=== PATIENT | male | born 1970 | race Caucasian/White ===

== ENCOUNTER 2018-08-20 23:50 | Inpatient (IN) ==
[2018-08-21] MEDS ORDERED: 0.9 % Sodium Chloride 1,000 ML IVC ONE (00:02)
--- NOTE | 2018-08-21 00:02 | Emergency Department Note ---
Disposition Clinical Impression: V-tach, Atrial fibrillation with RVR Disposition: Admitted As Inpatient Condition: Fair Referrals: NONE,PCP [Primary Care Provider] - Forms: ED Satisfaction Letter Time of Disposition: 01:45 General Adult HPI - General Chief complaint: ED Chest Pain Stated complaint: chest pain Time Seen by Provider: 08/21/18 00:00 Source: patient, EMS Limitations: no limitations Nursing Notes Reviewed: Yes Vital Signs Reviewed: Yes - History of Present Illness HPI Narrative: 48-year-old male presents emergency department with concern for palpitations starting a few hours prior to arrival. Patient reports that he has not had any chest pain. Patient reports that he has been dizzy, but has not passed out. Patient reports taking phentermine for weight loss over the last month. He also reports taking 3 rocket fuel drinks today. He states that he has been working a lot lately. Patient states that 8 years ago, he was diagnosed with some type of abnormal rhythm. He reports that he was taking several medications at that time. States that he was on a blood pressure medication for short stent, but quit taking it. Stated he had a cardiac evaluation at that time including ECG and stress testing and everything was normal. Patient denies any episodes of chest pain over the last few days. He denies any cough or upper respiratory infection symptoms. Patient does endorse diaphoresis. Pain Scale: 0 - Related Data Home Medications Medication Instructions Recorded Confirmed Celebrex 05/14/18 Percocet 7.5-325 mg Tablet 05/14/18 Previous Rx's Medication Instructions Recorded DiphenhydraMINE [Benadryl] 25 mg PO Q8HR PRN #30 capsule 05/14/18 Fluticasone Propionate Nasal 50 mcg NS BID #1 bottle 05/14/18 [Flonase] GuaiFENesin/Dextromethorphan 1 each PO BID #14 tab.er.[id number] 05/14/18 [Mucinex DM] Allergies Allergy/AdvReac Type Severity Reaction Status Date / Time No Known Allergies Allergy Verified 05/15/18 11:43 All systems ED: reviewed and negative except as stated. Review of Systems: As Per HPI Constitutional: Denies: fever Cardiovascular: Reports: palpitations, other (Dizziness). Denies: chest pain, syncope Respiratory: Denies: cough, dyspnea Gastrointestinal: Denies: abdominal pain, nausea Genitourinary: Denies: dysuria Past Medical History - Past Medical History Medical history: Reports: atrial fibrillation, hypertension Psychiatric history: Reports: no psych history - Social History Smoking Status: Former smoker Smokeless Tobacco Status: No Alcohol use: Reports: none Drug use: Reports: none Physical Exam - General Limitations: no limitations General appearance: alert, in no apparent distress - Head Head exam: normocephalic - Eye Eye exam: Present: EOMI - ENT ENT exam: mucous membranes moist - Neck Neck exam: Present: trachea midline - Chest Chest inspection: Present: symmetric chest wall rise - Respiratory Respiratory exam: Present: normal lung sounds bilaterally. Absent: respiratory distress, accessory muscle use - Cardiovascular Cardiovascular exam: Present: tachycardia, irregular rhythm, other (Telemetry: A. fib with RVR with a rate in the 130s, nonsustained runs of ventricular tachycardia with a rate as high as 220) - Abdominal Exam Abdominal exam: Present: soft, Non-Tender. Absent: distention, guarding, rebound, rigidity - Extremities Exam Extremities exam: Present: normal capillary refill - Back Exam Back exam: Present: full ROM - Neurological Exam Neurological exam: Present: alert, oriented X3 - Psychiatric Psychiatric exam: Present: normal affect, normal mood - Skin Skin exam: Present: warm, dry, intact, normal color. Absent: rash Course Vital Signs Temperature 98.3 F 08/20/18 23:53 Pulse Rate 149 08/20/18 23:53 Respiratory Rate 20 08/20/18 23:53 Blood Pressure 148/136 08/20/18 23:53 O2 Sat by Pulse Oximetry 100 08/20/18 23:53 Temperature 98.3 F 08/20/18 23:53 Pulse Rate 116 08/21/18 01:12 Respiratory Rate 14 08/21/18 01:12 Blood Pressure 131/93 08/21/18 01:12 O2 Sat by Pulse Oximetry 96 08/21/18 01:13 Oxygen Delivery Oxygen Delivery Room Air Medical Decision Making - [facility] Narrative Medical decision making narrative: 48-year-old male presents emergency department with concern for episodes of A. fib with RVR and paroxysmal nonsustained ventricular tachycardia. Patient only having symptoms of fluttering dizziness. He is not having any chest pain. Patient blood pressure stable tenderness. Patient was going into episodes of V. tach, the highest his heart rate went to was 220. We placed pads immediately. Patient was administered 1 L of fluids. Normal saline. We started amiodarone infusion by loading with 150 mg every 20 minutes. With this started IV drip afterwards. I spoke with the accounts receivable associate, Dr. Chowdary regarding the care of the patient. He agreed with the plan. Said to specifically keep patient's potassium will for a magnesium above 2. Also spoke with the design draftsman, Dr. Rolno who stated that without any chest pain or any concerning for ischemia and there would be no need for interventional cardiology involvement at this time. I agree with this. The basic metabolic panel was unremarkable and electrolytes were normal. Patient did have a mild leukocytosis which at this time, most consistent with stress demargination secondary to his rapid heart rate. Patient's troponin was negative. Chest x-ray did not reveal any evidence of cardiopulmonary abnormality. Patient did have 324 mg of aspirin prior to arrival. Dr. White agreed to accept the patient for admission. Patient was feeling much better. No more episodes of ventricular tachycardia after initial infusion of amiodarone. Patient currently in atrial fibrillation with RVR in the low 100s to 110s. Patient had aspirin prior to arrival. Have not started any blood thinning medication at this time. Chest X-Ray 08/21/18 00:01 IMPRESSION: No acute disease. D/ / Hayes Toussaint MD / Hayes Toussaint MD Interpreting Provider: Hayes Toussaint MD - Lab Data Result diagrams: 08/21/18 00:11 08/21/18 00:11 Lab Results 08/21/18 08/21/18 08/21/18 Range/Units 00:11 00:11 00:11 WBC 15.0 H (4.3-11.1) K/mcL RBC 5.39 (4.19-5.50) M/mcL Hgb 15.6 (12.9-16.9) g/dL Hct 46.8 (37.5-50.1) % MCV 86.8 (83.0-100.0) fL MCH 28.9 (28.0-33.3) pg MCHC 33.3 (31.6-35.5) g/dL RDW 13.2 (11.5-14.5) % Plt Count 269 (140-400) K/mcL MPV 9.9 (9.4-12.4) fL Immature Gran % 0.5 (0-4) % Seg Neutrophils % 62.2 % Lymphocytes % 26.5 % Monocytes % 9.5 % Eosinophils % 0.9 % Basophils % 0.4 % Neutrophils # 9.4 H (1.6-8.9) K/mcL Lymphocytes # 4.0 (0.6-4.6) K/mcL Monocytes # 1.4 H (0.0-1.3) K/mcL Eosinophils # 0.1 (0.0-0.6) K/mcL Basophils # 0.1 (0.0-0.2) K/mcL Sodium 138 (136-145) mEq/L Potassium 4.1 (3.5-5.1) mEq/L Chloride 104 (98-107) mEq/L Carbon Dioxide 26 (23-29) mEq/L BUN 14 (6-20) mg/dL Creatinine 1.05 (0.70-1.30) mg/dL Est GFR ( Amer) > 60 (> 60) Est GFR (Non-Af Amer) > 60 (> 60) BUN/Creatinine Ratio 13 (6-26) Glucose 112 H (70-105) mg/dL Calculated Osmolality 287 (280-300) Calcium 10.1 (8.6-10.3) mg/dL Magnesium 2.3 (1.6-2.6) mg/dL Troponin I 0.03 (< 0.04) ng/mL TSH 1.874 (0.340-5.600) mcIU/mL - EKG Data EKG #1 EKG attestation: Yes I reviewed and interpreted this EKG. EKG results narrative: EKG #1 23:55 Heart rate 187 bpm, no P waves, QRS duration 152 ms, QT normal. Atrial fibrillation with RVR and nonsustained runs of ventricular tachycardia ECG #2 23:57 V. tach with a heart rate of 210 bpm ECG #3 [id number] Atrial fibrillation with RVR with the heart rate as high as 136. and occasional PVC. No ischemic ST changes noted.
[2018-08-21] MEDS ORDERED: 0.9 % Sodium Chloride 1,000 ML ONE (00:04)
[2018-08-21] MEDS ORDERED: Amiodarone Premix 150 MG/100 ML BAG IVPB ONE (00:17)
[2018-08-21] MEDS ORDERED: Amiodarone Premix 360 MG/200 ML BAG IVC ONE (00:19)
[2018-08-21 00:24] LABS: Basophils # 0.1 K/mcL (0.0-0.2); Basophils % 0.4 %; Eosinophils # 0.1 K/mcL (0.0-0.6); Eosinophils % 0.9 %; Hematocrit 46.8 % (37.5-50.1); Hemoglobin 15.6 g/dL (12.9-16.9); Immature Granulocytes % 0.5 % (0-4); Lymphocytes % 26.5 %; Mean Corpuscular HGB Conc 33.3 g/dL (31.6-35.5); Mean Corpuscular Hemoglobin 28.9 pg (28.0-33.3); Mean Corpuscular Volume 86.8 fL (83.0-100.0); Mean Platelet Volume 9.9 fL (9.4-12.4); Monocytes # 1.4 K/mcL (0.0-1.3); Monocytes % 9.5 %; Neutrophils # 9.4 K/mcL (1.6-8.9); Platelet Count 269 K/mcL (140-400); Red Blood Count 5.39 M/mcL (4.19-5.50); Red Cell Distribution Width 13.2 % (11.5-14.5); Segmented Neutrophils % 62.2 %
--- NOTE | 2018-08-21 00:30 | Emergency Department Note ---
Disposition Clinical Impression: V-tach, Atrial fibrillation with RVR Disposition: Admitted As Inpatient Condition: Fair Time of Disposition: 01:45 General Adult HPI - General Chief complaint: ED Chest Pain Stated complaint: chest pain Time Seen by Provider: 08/21/18 00:00 Source: patient, EMS Limitations: no limitations Nursing Notes Reviewed: Yes Vital Signs Reviewed: Yes - History of Present Illness Pain Scale: 0 - Related Data Home Medications Medication Instructions Recorded Confirmed DiphenhydraMINE [Benadryl] 25 mg PO HS PRN 08/21/18 08/21/18 Oxycodone HCl/Acetaminophen 1 each PO BID PRN 08/21/18 08/21/18 [Percocet 5-325 mg Tablet] Phentermine HCl [Adipex-P] 37.5 mg PO DAILY 08/21/18 08/21/18 Allergies Allergy/AdvReac Type Severity Reaction Status Date / Time No Known Allergies Allergy Verified 05/15/18 11:43 Past Medical History - Past Medical History Medical history: Reports: atrial fibrillation, hypertension Psychiatric history: Reports: no psych history - Social History Smoking Status: Former smoker Smokeless Tobacco Status: No Alcohol use: Reports: none Drug use: Reports: none Physical Exam - General Limitations: no limitations General appearance: alert, in no apparent distress Course Vital Signs Temperature 98.3 F 08/20/18 23:53 Pulse Rate 149 08/20/18 23:53 Respiratory Rate 20 08/20/18 23:53 Blood Pressure 148/136 08/20/18 23:53 O2 Sat by Pulse Oximetry 100 08/20/18 23:53 Temperature 98.3 F 08/20/18 23:53 Pulse Rate 116 08/21/18 01:12 Respiratory Rate 18 08/21/18 02:53 Blood Pressure 116/96 08/21/18 02:53 O2 Sat by Pulse Oximetry 96 08/21/18 01:13 Oxygen Delivery Oxygen Delivery Room Air Medical Decision Making - Lab Data Lab results reviewed: Yes I reviewed the patient's lab results. Result diagrams: 08/21/18 00:11 08/21/18 00:11 Lab Results 08/21/18 08/21/18 08/21/18 Range/Units 00:11 00:11 00:11 WBC 15.0 H (4.3-11.1) K/mcL RBC 5.39 (4.19-5.50) M/mcL Hgb 15.6 (12.9-16.9) g/dL Hct 46.8 (37.5-50.1) % MCV 86.8 (83.0-100.0) fL MCH 28.9 (28.0-33.3) pg MCHC 33.3 (31.6-35.5) g/dL RDW 13.2 (11.5-14.5) % Plt Count 269 (140-400) K/mcL MPV 9.9 (9.4-12.4) fL Immature Gran % 0.5 (0-4) % Seg Neutrophils % 62.2 % Lymphocytes % 26.5 % Monocytes % 9.5 % Eosinophils % 0.9 % Basophils % 0.4 % Neutrophils # 9.4 H (1.6-8.9) K/mcL Lymphocytes # 4.0 (0.6-4.6) K/mcL Monocytes # 1.4 H (0.0-1.3) K/mcL Eosinophils # 0.1 (0.0-0.6) K/mcL Basophils # 0.1 (0.0-0.2) K/mcL Sodium 138 (136-145) mEq/L Potassium 4.1 (3.5-5.1) mEq/L Chloride 104 (98-107) mEq/L Carbon Dioxide 26 (23-29) mEq/L BUN 14 (6-20) mg/dL Creatinine 1.05 (0.70-1.30) mg/dL Est GFR ( Amer) > 60 (> 60) Est GFR (Non-Af Amer) > 60 (> 60) BUN/Creatinine Ratio 13 (6-26) Glucose 112 H (70-105) mg/dL Calculated Osmolality 287 (280-300) Calcium 10.1 (8.6-10.3) mg/dL Magnesium 2.3 (1.6-2.6) mg/dL Troponin I 0.03 (< 0.04) ng/mL TSH 1.874 (0.340-5.600) mcIU/mL - Radiology Data Radiology results reviewed: Yes I reviewed the patient's radiology results. Chest X-Ray 08/21/18 00:01 IMPRESSION: No acute disease. D/ / Hayes Toussaint MD / Hayes Toussaint MD Interpreting Provider: Hayes Toussaint MD - EKG Data EKG #1 EKG attestation: Yes I reviewed and interpreted this EKG. EKG results narrative: Atrial fibrillation with RVR with ventricular rate of 136. PVC. Right ventricular conduction delay. EKG #2 EKG attestation: Yes I reviewed and interpreted this EKG. EKG results narrative: Atrial fibrillation with RVR with ventricular rate of 136. PVC. Right ventricular conduction delay. EKG #3 EKG attestation: Yes I reviewed and interpreted this EKG. EKG results narrative: Atrial fibrillation with RVR with ventricular rate of 136. PVC. Right ventricular conduction delay. Critical Care Time Critical Care Time: Yes Total Critical Care Time: 45 Attestation: Critical care performed: Time is exclusive of separately billable procedures. Time includes: direct patient care, patient reassessment, coordination of patient care, interpretation of data (laboratory data, radiology data, and respiratory data), review of patient's medical records, medical consultation and documentation of patient care. Procedures included in critical care time: Procedures excluded from critical care time: Attestation Statement - Attestation Attestation: I, Abdoulaye Mayers MD, personally evaluated this patient and discussed their management with the resident physician. I reviewed the resident's note and agree with the documented findings, medical decision making, and plan of care. I reviewed the residents documentation and agree with the residents assessment and plan of care. I have personally had face to face time with the patient. I personally supervised and was present for the lee/critical portions of the following procedures completed by the resident: EKG interpretation. 48-year-old male presents to the emergency department by EMS with a complaint of palpitations which started about 8:30 this evening. He states he feels like his heart is racing and is irregular. It comes and goes. He complains of feeling weak and dizzy with the episodes. He also has had some diaphoresis. It also makes him short of breath whenever the heart start racing really fast. He denies any chest pain. He does have a history of some type of irregular heartbeat in the past but states he had a complete workup and they never found anything wrong with his heart. On examination patient is a well-developed obese male in no acute distress. He is alert and oriented 3. There is no cyanosis or diaphoresis. Breath sounds are clear and equal bilaterally. Heart is tachycardic and irregularly irregular. Abdomen is soft and nontender with normal bowel sounds. On arrival here in the emergency department the EKG shows atrial fibrillation with RVR which intermittently converts to ventricular tachycardia and then spontaneously converts back to atrial fibrillation with RVR. Heart rate in the 130s to 150s with the A. fib and up to 210 with the V. tach. Patient is alert throughout the episodes. He states he can feel it whenever he goes in to the V. tach and states it makes him feel a little short of breath but no chest pain. Chest x-ray negative. Labs reviewed and unremarkable. Troponin negative. TSH normal. Dr. Contreras discussed the case with the diesel roller operator honing machine operator, Dr. Chowdary. He was in agreement with treating the patient with amiodarone and did recommend contacting the interventional is. The interventional list, Dr. Rolon, was consulted and had no further recommendations at this time. The hospitalist, Dr. White, was consulted and accepted admission of the patient.
[2018-08-21 00:44] LABS: BUN/Creatinine Ratio 13 (6-26); Blood Urea Nitrogen 14 mg/dL (6-20); Calcium 10.1 mg/dL (8.6-10.3); Carbon Dioxide 26 mEq/L (23-29); Chloride 104 mEq/L (98-107); Glucose 112 mg/dL (70-105); Osmolality,Calculated 287 (280-300); Potassium 4.1 mEq/L (3.5-5.1); Sodium 138 mEq/L (136-145); eGFR For African Americans > 60 (> 60); eGFR For Non-African Americans > 60 (> 60)
[2018-08-21 00:46] LABS: Troponin I 0.03 ng/mL (< 0.04)
[2018-08-21 00:59] LABS: Thyroid Stimulating Hormone 1.874 mcIU/mL (0.340-5.600)
[2018-08-21] MEDS ORDERED: Naloxone 0.4 MG/ML INJ IVP PRN (02:39)
[2018-08-21] MEDS ORDERED: *HR* OxyCODONE/APAP 5/325 TABLET PO PRN (02:42)
--- NOTE | 2018-08-21 02:46 | Internal Med History&Physical ---
<IkeOlivaBryan C - Last Filed: 08/21/18 03:33> Date of Encounter: 08/21/18 Time of Encounter: 02:43 Internal Medicine - H&P: HPI Chief complaint: Weakness Admitted From: Emergency Dept Plans for Post Hospital Care: Home History of present illness: Mr. Abel is a 48 year old male with past medical history of obesity and bilateral total knee arthroplasties who presented to the emergency department via EMS after he complained of lightheadedness, weakness, palpitations. Patient states he has been working a lot recently, taking phentermine for weight loss, drinking energy drinks, not been sleeping, and was working heavily in the yard prior to the onset of symptoms. He states he began feeling lightheaded, weak, sweaty, and was having palpitations. He went inside to the shower, sat on the couch, and continued to feel weak and diaphoretic, and so called EMS. He denies any chest pain. He states he has had these symptoms once before when taking phentermine approximately 10 years ago. According to EMS the patient was going back and forth between ventricular tachycardia and atrial fibrillation en route to the emergency department. EKGs from the emergency department demonstrate this as well. In the emergency department amiodarone bolus and drip were administered. On my evaluation the patient was in atrial fibrillation with rate controlled. He denied any current complaints including chest pain, shortness of breath, fever, chills, abdominal pain, nausea, vomiting, lightheadedness or weakness. He reports quitting smoking over 10 years ago, denies significant alcohol use or any drug use. He denies any previous cardiac history. Past Med Surg Social Fam HX - Past Medical History Medical history: atrial fibrillation, hypertension, other Additional medical history: sleep apnea Psychiatric history: no psych history - Past Surgical History Additional surgical history: bilateral knee replacement - Social History Smoking Status: Former smoker Smokeless Tobacco Status: No Alcohol use: none Drug use: none Internal Medicine - H&P: Meds DiphenhydraMINE [Benadryl] 25 mg PO HS PRN 08/21/18 [History] Oxycodone HCl/Acetaminophen [Percocet 5-325 mg Tablet] 1 each PO BID PRN 08/21/18 [History] Phentermine HCl [Adipex-P] 37.5 mg PO DAILY 08/21/18 [History] Allergy/AdvReac Type Severity Reaction Status Date / Time No Known Allergies Allergy Verified 05/15/18 11:43 All Systems PM: A 10-system review of systems was performed and is negative for pertinent findings except as documented above in the HPI. - Constitutional Vitals: Temp Pulse Resp BP Pulse Ox 98.3 F 116 14 131/93 96 08/20/18 23:53 08/21/18 01:12 08/21/18 01:12 08/21/18 01:12 08/21/18 01:13 General appearance: Present: A&O X 3, no acute distress Exam: Alert and oriented, normal affect Cranial nerves II through XII intact, no focal deficits Pupils equal and reactive to light, extraocular movements intact Heart is tachycardic and in irregularly irregular rhythm without murmur or gallop auscultated Lungs clear to auscultation bilaterally without adventitia noted Abdomen soft and nontender with normal bowel sounds noted Motor 5/5 in all 4 extremities, sensation intact Skin warm and dry without rash, bruising, bleeding noted Internal Med - H&P Results - Labs CBC & Chem 7: 08/21/18 00:11 08/21/18 00:11 Labs: Short CBC 08/21/18 Range/Units 00:11 WBC 15.0 H (4.3-11.1) K/mcL Hgb 15.6 (12.9-16.9) g/dL Hct 46.8 (37.5-50.1) % Plt Count 269 (140-400) K/mcL Neutrophils # 9.4 H (1.6-8.9) K/mcL BMP 08/21/18 00:11 Sodium 138 Potassium 4.1 Chloride 104 Carbon Dioxide 26 BUN 14 Creatinine 1.05 Glucose 112 H Calcium 10.1 Cardiac Enzymes 08/21/18 Range/Units 00:11 Troponin I 0.03 (< 0.04) ng/mL - Impressions ITS Impressions Chest X-Ray 08/21/18 00:01 IMPRESSION: No acute disease. D/ / Hayes Toussaint MD / Hayes Toussaint MD Interpreting Provider: Hayes Toussaint MD - Assessment and Plan (1) V-tach Current Visit: Yes Status: Acute Assessment and plan: Patient was found to be in ventricular tachycardia by EMS and in emergency department With administration of amiodarone he converted to atrial fibrillation and has maintained Troponin negative, patient denies chest pain or shortness of breath Cardiology consultation recommended continuing amiodarone and will evaluate in the morning Patient is currently hemodynamically stable and without acute complaints We will continue amiodarone drip and monitor (2) Atrial fibrillation with RVR Current Visit: Yes Status: Acute Assessment and plan: Patient currently in atrial fibrillation with rate controlled ChadsVasc score is 0, we will not initiate heparin at this time Cardiology will evaluate in the morning (3) Obesity Current Visit: Yes Status: Chronic Assessment and plan: Patient was taking phentermine for weight loss and states he has had 1 previous episode of unknown cardiac complication from this drug over 10 years ago He was counseled on no longer taking this medication due to his previous physician for side effects Qualifiers: Obesity type: due to excess calories Obesity classification: adult class 3 (BMI >= 40) Serious obesity comorbidity presence: without serious comorbidity Body mass index: BMI 45.0-49.9 Qualified Code(s): E66.01 - Morbid (severe) obesity due to excess calories; Z68.42 - Body mass index (BMI) 45.0-49.9, adult (4) DVT prophylaxis Current Visit: Yes Status: Acute Assessment and plan: Subcutaneous heparin - Time Spent With Patient Total time spent is greater than 50% in coordination of care (as documented) at patient's floor/unit and/or counseling patient: <Juan F White - Last Filed: 08/21/18 07:55> Date of Encounter: 08/21/18 Internal Medicine - H&P: HPI History of present illness: Mr. Abel is a 48 year old male Past Med Surg Social Fam HX - Family History Father Living Status: Still Living Hx Family Cardiac Disorders: Yes (HTN) Mother Living Status: Still Living Hx Family Cardiac Disorders: Yes (HTN) All Systems PM: A 10-system review of systems was performed and is negative for pertinent findings except as documented above in the HPI. - Constitutional Vitals: Temp Pulse Resp BP Pulse Ox 98.3 F 96 18 139/87 95 08/21/18 06:39 08/21/18 06:39 08/21/18 06:39 08/21/18 06:39 08/21/18 06:39 Internal Med - H&P Results - Labs CBC & Chem 7: 08/21/18 00:11 08/21/18 00:11 Labs: Short CBC 08/21/18 Range/Units 00:11 WBC 15.0 H (4.3-11.1) K/mcL Hgb 15.6 (12.9-16.9) g/dL Hct 46.8 (37.5-50.1) % Plt Count 269 (140-400) K/mcL Neutrophils # 9.4 H (1.6-8.9) K/mcL BMP 08/21/18 00:11 Sodium 138 Potassium 4.1 Chloride 104 Carbon Dioxide 26 BUN 14 Creatinine 1.05 Glucose 112 H Calcium 10.1 Cardiac Enzymes 08/21/18 Range/Units 00:11 Troponin I 0.03 (< 0.04) ng/mL - Impressions ITS Impressions Chest X-Ray 08/21/18 00:01 IMPRESSION: No acute disease. D/ / Hayes Toussaint MD / Hayes Toussaint MD Interpreting Provider: Hayes Toussaint MD - Time Spent With Patient Total time spent is greater than 50% in coordination of care (as documented) at patient's floor/unit and/or counseling patient: - Attending Attestation I performed a history and physical examination of the patient and discussed his management with the resident. I reviewed the resident's note and agree with the documented plan of care. We will continue with amiodarone drip. Hold anticoagulation given patient's chads vascular score 0. Cardiology consult.
[2018-08-21] MEDS ORDERED: Amiodarone Premix 360 MG/200 ML BAG IVC SCH (04:15)
[2018-08-21] MEDS ORDERED: *HR* Heparin 5,000 UNIT/ML VIAL SQ SCH (06:00)
[2018-08-21 06:01] LABS: INR 1.1; Prothrombin Time 12.1 Seconds (9.4-12.1)
[2018-08-21 06:03] LABS: Activated Partial Thrombo Time 33.4 Seconds (26.0-36.0)
--- NOTE | 2018-08-21 08:21 | Internal Med Progress Note ---
<Juan Abbasi - Last Filed: 08/21/18 16:38> Hospitalist Progress Note - Encounter Date of Encounter: 08/21/18 - Exam Vitals: Temp Pulse Resp BP Pulse Ox 98.3 F 72 18 123/80 94 08/21/18 12:02 08/21/18 15:00 08/21/18 15:00 08/21/18 15:00 08/21/18 15:00 - Time Spent with Patient Total time spent is greater than 50% in coordination of care (as documented) at patient's floor/unit and/or counseling patient: Internal Medicine: Result - Labs CBC & Chem 7: 08/21/18 10:14 08/21/18 00:11 Labs: Short CBC 08/21/18 08/21/18 Range/Units 00:11 10:14 WBC 15.0 H 12.6 H (4.3-11.1) K/mcL Hgb 15.6 14.9 (12.9-16.9) g/dL Hct 46.8 44.7 (37.5-50.1) % Plt Count 269 262 (140-400) K/mcL Neutrophils # 9.4 H (1.6-8.9) K/mcL BMP 08/21/18 00:11 Sodium 138 Potassium 4.1 Chloride 104 Carbon Dioxide 26 BUN 14 Creatinine 1.05 Glucose 112 H Calcium 10.1 Cardiac Enzymes 08/21/18 08/21/18 Range/Units 00:11 09:17 Troponin I 0.03 < 0.03 (< 0.04) ng/mL - ABG Interpretation ABG results: PT/INR, D-dimer PT 12.1 Seconds (9.4-12.1) 08/21/18 10:14 - Impressions Impressions Chest X-Ray 08/21/18 00:01 IMPRESSION: No acute disease. D/ / Hayes Toussaint MD / Hayes Toussaint MD Interpreting Provider: Hayes Toussaint MD Echocardiogram 08/21/18 08:53 Impressions: LVEF 60-65%. Normal LV chamber size and function. Mild concentric left ventricular hypertrophy. Indeterminate diastolic function. Normal right ventricular structure and function. No evidence of pulmonary hypertension. No significant valvular dysfunction. Left Ventricular Wall Motion: Rest Echo Findings All wall segments showed normal motion. Findings: Study Quality * Technically adequate exam. ECG Findings * Atrial fibrillation. Left Ventricle * LVEF 60-65%. * Normal LV chamber size and function. * Mild concentric left ventricular hypertrophy. * Indeterminate diastolic function. Right Ventricle * Normal right ventricular structure and function. Left Atrium * Mildly dilated left atrium. Right Atrium * Normal right atrial size. Interatrial Septum * Interatrial septum not well evaluated. Aortic Valve * Trileaflet aortic valve with normal function. * No aortic regurgitation. * No aortic stenosis. Mitral Valve * Normal mitral valve structure and function. * No mitral regurgitation. * No mitral stenosis. Tricuspid Valve * Normal tricuspid valve structure and function. * Trace tricuspid regurgitation. * No evidence of pulmonary hypertension. Pulmonic Valve * Normal pulmonic valve structure and function. * No pulmonic regurgitation. Aorta * Normally sized aortic root. Pericardium * The pericardium appears normal. IVC * Normal IVC dimensions and inspiratory collapse. Pulmonary Artery * Normal visualized portions of the main pulmonary artery. Consult Discharge Plan - Plan Referrals: NONE,PCP [Primary Care Provider] - - Attending Attestation I examined this patient and my medical decision-making was reviewed with the Resident Physician on 08/21/18. I agree with the documented findings, disposition and treatment plan as described except to the extent set forth below. Mr Abel was admitted earlier this AM with atrial fibrillation versus V tach. He remains in a fib at this time. Exam alert comfortable Mucus membranes moist Heart irreg and not tachy Appreciate cardiology input Agree with assessment and plan as above and in H&P <Maggie Sawant - Last Filed: 08/21/18 19:55> Hospitalist Progress Note - Encounter Date of Encounter: 08/21/18 Time of Encounter: 08:18 - Subjective Interval History: Seen and examined this morning. Pt's is present in the room. Pt states he i s feeling much better than when he was admitted. Denies chest pain, difficulty breathing, abdominal pain, nausea, headache. He has no complaints at this time. - Exam Vitals: Temp Pulse Resp BP Pulse Ox 98.3 F 96 18 139/87 95 08/21/18 06:39 08/21/18 06:39 08/21/18 06:39 08/21/18 06:39 08/21/18 06:39 Exam: General: No acute distress, vitals noted HEENT: head normocephalic/atraumatic, EOMI, PERRL, sclera anicteric, moist mucus membranes Neck: Supple Cardio: Irregular rhythm, tachycardic, no murmurs, +S1/S2, no carotid bruits Pulm: CTAB, no wheezing/rhonchi/rales. Normal respiratory effort. Abdomen: soft, nontender, active bowel sounds Extremities: No LE edema, no cyanosis, no clubbing, pedal pulses present and equal bilaterally Back: normal appearance on inspection Neuro: AAOx3, no focal deficits, no speech deficit, mentating well, normal gait, CN II-XII grossly intact, moves all extremities spontaneously MSK: no visible deformities, no joint swelling Skin: clean, dry, intact, no visible rashes Psych: Appropriate mood and affect. Answers questions appropriately. Cooperative with exam - Assessment and Plan (1) Atrial fibrillation with RVR Current Visit: Yes Status: Acute Assessment and Plan: Rate controlled. HR 149 on presentation to ED, pt states his HR was in 220's-250 during EMS transport. New onset, most likely d/t use of phentermine and excessive caffeine intake with 2-3 energy drinks per day. Pt states he had same symptoms of lightheadedness, diaphoresis, palpitations, and weakness when he took phentermine 10 years ago for weight loss. CHADS-VASc 1 (HTN). Sustained periods of VTach on monitor while in ED. EKG showed HR 134, Afib, and PVC's--per cardiology, morphology suggests outflow tract. Echo shows LVEF 60-65%, normal LV size and function, mild LVH, no significant valvular dysfunction. Received amiodarone bolus and gtt in emergency department, discontinued by cardiology who started pt on BB. Continue metoprolol 25mg PO BID. Continue telemetry monitoring and heparin gtt. Long-term ASA recommended by cardiology. Cardiology considering SHASHI guided cardioversion prior to discharge, possibly ischemic evaluation too. (2) V-tach Current Visit: Yes Status: Acute Assessment and Plan: As above. Arrhythmia most likely d/t phentermine and energy drinks. Possible ischemic evaluation prior to d/c. (3) Hypertension Current Visit: Yes Status: Chronic Assessment and Plan: Controlled. Hx of HTN not on BP meds. On presentation SBP 140's and DBP 100's. (4) Leukocytosis Current Visit: Yes Status: Acute Assessment and Plan: On admission WBC 15, most likely a reaction to bodily stress d/t stimulant use. No symptoms suggestive of infection. Will continue to monitor for downward trend. (5) Exposure to phentermine Current Visit: Yes Status: Acute Assessment and Plan: As above. Taking phentermine for weight loss x 1 month. Avoidance of phentermine in the future was discussed, pt agreeable. (6) Obesity Current Visit: Yes Status: Chronic Assessment and Plan: BMI 41.7 Recommend lifestyle changes including diet and exercise. Strongly recommend against using phentermine for weight loss. (7) Caffeine adverse reaction Current Visit: Yes Status: Acute Assessment and Plan: As above. DVT Prophylaxis: heparin gtt - Time Spent with Patient Total time spent is greater than 50% in coordination of care (as documented) at patient's floor/unit and/or counseling patient: less than 15 minutes Plan of Care Discussed with: patient Internal Medicine: Result - Labs CBC & Chem 7: 08/21/18 10:14 08/21/18 00:11 Labs: Short CBC 08/21/18 Range/Units 00:11 WBC 15.0 H (4.3-11.1) K/mcL Hgb 15.6 (12.9-16.9) g/dL Hct 46.8 (37.5-50.1) % Plt Count 269 (140-400) K/mcL Neutrophils # 9.4 H (1.6-8.9) K/mcL BMP 08/21/18 00:11 Sodium 138 Potassium 4.1 Chloride 104 Carbon Dioxide 26 BUN 14 Creatinine 1.05 Glucose 112 H Calcium 10.1 Cardiac Enzymes 08/21/18 Range/Units 00:11 Troponin I 0.03 (< 0.04) ng/mL - ABG Interpretation ABG results: PT/INR, D-dimer PT 12.1 Seconds (9.4-12.1) 08/21/18 05:25 - Impressions Impressions Chest X-Ray 08/21/18 00:01 IMPRESSION: No acute disease. D/ / Hayes Toussaint MD / Hayes Toussaint MD Interpreting Provider: Hayes Toussaint MD <Maggie Sawant - Last Filed: 08/21/18 19:55> (3) Hypertension Qualifiers: Hypertension type: unspecified Qualified Code(s): I10 - Essential (primary) hypertension (5) Exposure to phentermine Qualifiers: Encounter type: sequela Qualified Code(s): T50.5X5S - Adverse effect of appetite depressants, sequela (6) Obesity Qualifiers: Obesity type: due to excess calories Obesity classification: adult class 3 (BMI >= 40) Serious obesity comorbidity presence: without serious comorbidity Body mass index: BMI 45.0-49.9 Qualified Code(s): E66.01 - Morbid (severe) obesity due to excess calories; Z68.42 - Body mass index (BMI) 45.0-49.9, adult (7) Caffeine adverse reaction Qualifiers: Encounter type: sequela Qualified Code(s): T43.615S - Adverse effect of caffeine, sequela
--- NOTE | 2018-08-21 08:46 | Cardiology Consult Note ---
Date of Encounter: 08/21/18 Time of Encounter: 08:42 Assessment and Plan (1) V-tach Current Visit: Yes Status: Acute VT and A-Fib RVR on presentation. VT appears to be outflow tract. Suspect secondary to taking phentermine for weight loss, drinking 2-3 energy drinks/day. Symptoms of dizziness, lightheadedness, palpitations and chest discomfort. On amio gtt. No ventricular arrhythmias overnight. He remains in A-Fib and reports palpitations and mild chest discomfort currently. Stop Amio. Will start PO BB. K, Mag, TSH WNL. Initial troponin negative. Trend for total of 3. TTE to evaluate structure and function. Will determine if ischemic evaluation is warranted. EP consult Thursday for VT. (2) Atrial fibrillation with RVR Current Visit: Yes Status: Acute As above, new diagnosis of A-Fib RVR and VT while taking phentermine, drinking 2-3 energy drinks/day. He states he has had these symptoms once before when taking phentermine approximately 10 years ago and had a stress test and was started on a beta chelsie at that time, since discontinued. Currently rate controlled A-Fib, on amio gtt. Stop Amio. Will start PO BB. [id number] 1 (HTN). Low CVA risk. Will start heparin gtt and if remains in A-Fib over the weekend, consider SHASHI/DCCV prior to d/c given he is symptomatic and his age. Discussion w patient/family: The assessment and plan as outlined above was discussed with the patient and/or family members who expressed understanding and agreement. All questions were answered. Thank you for involving us in the care of your patient. Please call with any questions. I will discuss all the above with Dr. Chowdary and make changes as necessary. History of Present Illness Consult date: 08/21/18 Consult reason: A-Fib RVR, VT History of present illness: Mr. Abel is a 48 year old male with PMH of obesity, prior tobacco abuse who presented to ED via EMS for sudden onset of lightheadedness, weakness, palpitations, chest discomfort that started at 8:30PM yesterday after chopping wood. He is taking phentermine for weight loss, drinking 2-3 energy drinks/day. He states he has had these symptoms once before when taking phentermine approximately 10 years ago and had a stress test and was started on a beta chelsie at that time, since discontinued. According to EMS the patient noted to have A-Fib and VT en route to the emergency department. EKGs from the emergency department demonstrate this as well. In the ED amiodarone bolus and drip were started. No ventricular arrhythmias overnight. He remains in A-Fib and still reports palpitations and chest discomfort. Initial troponin negative. Cardiology consulted for further recs. Past Med Surg Social Fam HX - Past Medical History Medical history: atrial fibrillation, hypertension, other Additional medical history: sleep apnea Psychiatric history: no psych history - Past Surgical History Additional surgical history: bilateral knee replacement, left bicap - Social History Smoking Status: Former smoker Smokeless Tobacco Status: No Alcohol use: none Drug use: none - Family History Father Living Status: Still Living Hx Family Cardiac Disorders: Yes (HTN) Mother Living Status: Still Living Hx Family Cardiac Disorders: Yes (HTN) Medications and Allergies DiphenhydraMINE [Benadryl] 25 mg PO HS PRN 08/21/18 [History] Oxycodone HCl/Acetaminophen [Percocet 5-325 mg Tablet] 1 each PO BID PRN 08/21/18 [History] Phentermine HCl [Adipex-P] 37.5 mg PO DAILY 08/21/18 [History] Allergy/AdvReac Type Severity Reaction Status Date / Time No Known Allergies Allergy Verified 05/15/18 11:43 All Systems Review: The remainder of the systems were reviewed and are negative - Cardiovascular Cardiovascular: as per HPI, chest pain at rest, lightheadedness, palpitations, rapid heart rate Physical Examination Vital Signs, Last 4 Hours Temp Pulse Resp BP Pulse Ox 08/21/18 06:39 98.3 F 96 18 139/87 95 08/21/18 06:38 84 139/103 08/21/18 06:30 83 139/87 08/21/18 06:00 109 143/91 08/21/18 05:30 88 139/96 08/21/18 05:00 90 136/96 Vital Signs Temp Pulse Resp BP Pulse Ox 08/21/18 06:39 98.3 F 96 18 139/87 95 08/21/18 06:38 84 139/103 08/21/18 06:30 83 139/87 08/21/18 06:00 109 143/91 08/21/18 05:30 88 139/96 08/21/18 05:00 90 136/96 08/21/18 04:30 84 139/103 08/21/18 03:23 98.1 F 86 18 148/93 96 08/21/18 02:53 18 116/96 08/21/18 01:13 96 08/21/18 01:12 116 14 131/93 95 08/21/18 00:45 114 15 142/100 96 08/21/18 00:33 123 14 133/83 97 08/21/18 00:06 134 16 127/101 98 08/20/18 23:53 98.3 F 149 20 148/136 100 Intake and Output 08/20/18 08/21/18 08/21/18 23:59 07:59 15:59 Intake Total 1300 / 1300 Output Total 225 / 225 Balance 1075 / 1075 Intake: IV Fluids 1300 / 1300 0.9 % Sodium Chloride 1,000 ML 1000 / 1000 @ Wide Open IVC .Q0M ONE Rx#: [id number] Amiodarone Drip Premix 360mg/ 200 / 200 200mL 360 mg In 200 ml @ 1 MG/ MIN 33.333 mls/hr IVC ONCE ONE Rx#:[id number] Amiodarone Premix 150mg/100mL 100 / 100 150 mg In 100 ml @ 300 mls/hr IVPB ONCE ONE Rx#:[id number] Output: Urine 225 / 225 Other: Weight 153.677 kg 139.5 kg Patient Weight 08/21/18 23:59 Weight 139.5 kg General: Conversant, No Apparent Distress HEENT: Atraumatic, Normocephaly, Mucus Membranes Moist Neck: No JVD, Normal carotid pulses Cardiac: Other (irregularly irregular rhythm) Lungs: Normal Breath Sounds, No Wheeze, Rales, Rhonchi Neuro: Alert and responsive, No focal deficits noted Abdomen: Soft, Non-Tender Skin: No rashes noted on visualized skin Musculoskeletal: No Chest Wall Tenderness Extremities: No Clubbing, No Cyanosis, No Edema, Normal Pulses Results 08/21/18 00:11 08/21/18 00:11 Lab Results 08/21/18 08/21/18 08/21/18 00:11 00:11 00:11 WBC 15.0 H Hgb 15.6 Hct 46.8 Plt Count 269 INR APTT Sodium 138 Potassium 4.1 Chloride 104 Carbon Dioxide 26 BUN 14 Creatinine 1.05 Glucose 112 H Calcium 10.1 Magnesium 2.3 Troponin I 0.03 TSH 1.874 08/21/18 05:25 WBC Hgb Hct Plt Count INR 1.1 APTT 33.4 Sodium Potassium Chloride Carbon Dioxide BUN Creatinine Glucose Calcium Magnesium Troponin I TSH Short CBC 08/21/18 Range/Units 00:11 WBC 15.0 H (4.3-11.1) K/mcL Hgb 15.6 (12.9-16.9) g/dL Hct 46.8 (37.5-50.1) % Plt Count 269 (140-400) K/mcL Neutrophils # 9.4 H (1.6-8.9) K/mcL BMP 08/21/18 Range/Units 00:11 Sodium 138 (136-145) mEq/L Potassium 4.1 (3.5-5.1) mEq/L Chloride 104 (98-107) mEq/L Carbon Dioxide 26 (23-29) mEq/L BUN 14 (6-20) mg/dL Creatinine 1.05 (0.70-1.30) mg/dL Glucose 112 H (70-105) mg/dL Calcium 10.1 (8.6-10.3) mg/dL Cardiac Enzymes 08/21/18 Range/Units 00:11 Troponin I 0.03 (< 0.04) ng/mL Impressions Chest X-Ray 08/21/18 00:01 IMPRESSION: No acute disease. D/ / Hayes Toussaint MD / Hayes Toussaint MD Interpreting Provider: Hayes Toussaint MD Active Medications Heparin Sodium (Porcine) (Heparin) 5,000 unit SQ Q12HCO ASHLEY Stop: 02/20/19 06:01 Last Admin: 08/21/18 06:14 Dose: 5,000 unit Documented by: Amiodarone HCl/Dextrose (Amiodarone Drip Premix 360mg/200ml) 360 mg in 200 mls @ 16.667 mls/hr IVC CONT ASHLEY Stop: 02/20/19 04:16 Last Admin: 08/21/18 06:12 Dose: 0.5 mg/min, 16.7 mls/hr Documented by: Naloxone HCl (Narcan) 0.4 mg IVP Q2MPRN PRN PRN Reason: SEE COMMENTS Stop: 02/20/19 02:40 Oxycodone/Acetaminophen (Percocet 5/325) 1 each PO BID PRN PRN Reason: Pain Stop: 02/20/19 02:43 - EKG Interpretation EKG results cardiology: personally reviewed (A-Fib RVR, VT), other (12 hr tele AVG HR 92, A-Fib, no ventricular arrhythmias) Consult Discharge Plan - Plan Referrals: NONE,PCP [Primary Care Provider] -
[2018-08-21] MEDS ORDERED: *HR* Heparin 5,000 UNIT/ML VIAL IVP ONE (09:48)
[2018-08-21] MEDS ORDERED: *HR* Heparin 5,000 UNIT/ML VIAL IVP PRN ×2 (09:48)
[2018-08-21 10:26] LABS: Hematocrit 44.7 % (37.5-50.1); Hemoglobin 14.9 g/dL (12.9-16.9); Mean Corpuscular HGB Conc 33.3 g/dL (31.6-35.5); Mean Corpuscular Hemoglobin 29.5 pg (28.0-33.3); Mean Corpuscular Volume 88.5 fL (83.0-100.0); Mean Platelet Volume 10.1 fL (9.4-12.4); Platelet Count 262 K/mcL (140-400); Red Blood Count 5.05 M/mcL (4.19-5.50); Red Cell Distribution Width 13.4 % (11.5-14.5); White Blood Count 12.6 K/mcL (4.3-11.1)
[2018-08-21 10:34] LABS: Heparin anti-factor XA UFH 0.01 IU/mL (0.30-0.70)
[2018-08-21 10:35] LABS: INR 1.1; Prothrombin Time 12.1 Seconds (9.4-12.1)
[2018-08-21] MEDS: Heparin 25,000 UNIT/250 ML D5W 25,000 UNIT/250 ML IV.SOLN IVC SCH (11:00)
--- NOTE | 2018-08-21 14:20 | Electrocardiograph Report ---
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
[2018-08-22 03:05] LABS: Basophils # 0.1 K/mcL (0.0-0.2); Basophils % 0.4 %; Eosinophils # 0.2 K/mcL (0.0-0.6); Hemoglobin 15.4 g/dL (12.9-16.9); Immature Granulocytes % 0.3 % (0-4); Lymphocytes # 5.6 K/mcL (0.6-4.6); Lymphocytes % 46.2 %; Mean Corpuscular HGB Conc 32.8 g/dL (31.6-35.5); Mean Corpuscular Volume 88.5 fL (83.0-100.0); Mean Platelet Volume 10.1 fL (9.4-12.4); Monocytes % 8.3 %; Neutrophils # 5.2 K/mcL (1.6-8.9); Platelet Count 265 K/mcL (140-400); Red Blood Count 5.31 M/mcL (4.19-5.50); Red Cell Distribution Width 13.6 % (11.5-14.5); Segmented Neutrophils % 42.8 %; White Blood Count 12.1 K/mcL (4.3-11.1)
[2018-08-22 03:21] LABS: BUN/Creatinine Ratio 14 (6-26); Blood Urea Nitrogen 12 mg/dL (6-20); Calcium 9.4 mg/dL (8.6-10.3); Carbon Dioxide 25 mEq/L (23-29); Chloride 107 mEq/L (98-107); Glucose 104 mg/dL (70-105); Osmolality,Calculated 286 (280-300); Sodium 138 mEq/L (136-145); eGFR For African Americans > 60 (> 60); eGFR For Non-African Americans > 60 (> 60)
--- NOTE | 2018-08-22 06:09 | Internal Med Progress Note ---
<Maggie Sawant - Last Filed: 08/22/18 13:22> Hospitalist Progress Note - Encounter Date of Encounter: 08/22/18 Time of Encounter: 08:22 - Subjective Interval History: No overnight events on review of chart. - Exam Vitals: Temp Pulse Resp BP Pulse Ox 97.8 F 76 18 110/89 98 08/22/18 02:20 08/22/18 04:40 08/22/18 02:20 08/22/18 02:20 08/22/18 02:20 Exam: General: No acute distress, vitals noted HEENT: head normocephalic/atraumatic, EOMI, PERRL, sclera anicteric, moist mucus membranes Neck: Supple Cardio: Irregular rhythm, tachycardic, no murmurs, +S1/S2, no carotid bruits Pulm: CTAB, no wheezing/rhonchi/rales. Normal respiratory effort. Abdomen: soft, nontender, active bowel sounds Extremities: No LE edema, no cyanosis, no clubbing, pedal pulses present and equal bilaterally Back: normal appearance on inspection Neuro: AAOx3, no focal deficits, no speech deficit, mentating well, normal gait, CN II-XII grossly intact, moves all extremities spontaneously MSK: no visible deformities, no joint swelling Skin: clean, dry, intact, no visible rashes Psych: Appropriate mood and affect. Answers questions appropriately. Cooperative with exam - Assessment and Plan (1) Atrial fibrillation with RVR Current Visit: Yes Status: Acute Assessment and Plan: Rate controlled, average HR 70s-80s. HR 149 on presentation to ED, pt states his HR was in 220's-250 during EMS tr [place]. New onset, most likely d/t use of phentermine and excessive caffeine intake with 2-3 energy drinks per day. Pt states he had same symptoms of lightheadedness, diaphoresis, palpitations, and weakness when he took phentermine 10 years ago for weight loss. CHADS-VASc 1 (HTN). EKG showed HR 134, Afib, and PVC's--per cardiology, morphology suggests outflow tract. Echo shows LVEF 60-65%, normal LV size and function, mild LVH, no significant valvular dysfunction. Received amiodarone bolus and gtt in ED, discontinued and replaced with BB. - Cardiology tentatively planning for LHC and SHASHI/DCCV to restore sinus rhythm tomorrow. - Continue metoprolol 25mg PO BID. - Continue telemetry monitoring and heparin gtt. - Long-term ASA recommended by cardiology. (2) V-tach Current Visit: Yes Status: Resolved Assessment and Plan: No ventricular arrhythmias overnight. On admission, sustained periods of VTach on monitor in ED. Arrhythmia possibly d/t phentermine + energy drinks vs ischemic cause. EKG showed HR 134, Afib, and PVC's--per cardiology, morphology suggests outflow tract. - Plan as above. (3) Hypertension Current Visit: Yes Status: Chronic Assessment and Plan: Controlled. Hx of HTN not on BP meds. On presentation SBP 140's and DBP 100's--likely d/t combination of underlying HTN and sympathomimetic effects of phentermine. (4) Leukocytosis Current Visit: Yes Status: Acute Assessment and Plan: On admission WBC 15, trending down. Most likely a reaction to bodily stress d/t stimulant use. Afebrile since admission, no other signs or symptoms suggestive of infection. Will continue to monitor. (5) Exposure to phentermine Current Visit: Yes Status: Acute Assessment and Plan: As above. Taking phentermine for weight loss x 1 month. Avoidance of phentermine in the future was discussed, pt agreeable. (6) Obesity Current Visit: Yes Status: Chronic Assessment and Plan: BMI 41.7 Recommend lifestyle changes including diet and exercise. Strongly recommend against using phentermine for weight loss. (7) Caffeine adverse reaction Current Visit: Yes Status: Acute Assessment and Plan: As above. (8) Sleep apnea Current Visit: Yes Status: Chronic Assessment and Plan: Per pt, remote sleep study showed > 100 apneic events and O2 sat 70s. Pt has been treating with mouth guard, but reports he still has periods of apnea and snores loudly. Agree with cardiology recommendation for outpatient sleep study. DVT Prophylaxis: heparin gtt - Time Spent with Patient Total time spent is greater than 50% in coordination of care (as documented) at patient's floor/unit and/or counseling patient: less than 15 minutes Plan of Care Discussed with: patient Internal Medicine: Result - Labs CBC & Chem 7: 08/22/18 02:49 08/22/18 02:49 Labs: Short CBC 08/21/18 08/22/18 Range/Units 10:14 02:49 WBC 12.6 H 12.1 H (4.3-11.1) K/mcL Hgb 14.9 15.4 (12.9-16.9) g/dL Hct 44.7 47.0 (37.5-50.1) % Plt Count 262 265 (140-400) K/mcL Neutrophils # 5.2 (1.6-8.9) K/mcL BMP 08/22/18 02:49 Sodium 138 Potassium 4.0 Chloride 107 Carbon Dioxide 25 BUN 12 Creatinine 0.86 Glucose 104 Calcium 9.4 Cardiac Enzymes 08/21/18 Range/Units 09:17 Troponin I < 0.03 (< 0.04) ng/mL - ABG Interpretation ABG results: PT/INR, D-dimer PT 12.1 Seconds (9.4-12.1) 08/21/18 10:14 - Impressions Impressions Echocardiogram 08/21/18 08:53 Impressions: LVEF 60-65%. Normal LV chamber size and function. Mild concentric left ventricular hypertrophy. Indeterminate diastolic function. Normal right ventricular structure and function. No evidence of pulmonary hypertension. No significant valvular dysfunction. Left Ventricular Wall Motion: Rest Echo Findings All wall segments showed normal motion. Findings: Study Quality * Technically adequate exam. ECG Findings * Atrial fibrillation. Left Ventricle * LVEF 60-65%. * Normal LV chamber size and function. * Mild concentric left ventricular hypertrophy. * Indeterminate diastolic function. Right Ventricle * Normal right ventricular structure and function. Left Atrium * Mildly dilated left atrium. Right Atrium * Normal right atrial size. Interatrial Septum * Interatrial septum not well evaluated. Aortic Valve * Trileaflet aortic valve with normal function. * No aortic regurgitation. * No aortic stenosis. Mitral Valve * Normal mitral valve structure and function. * No mitral regurgitation. * No mitral stenosis. Tricuspid Valve * Normal tricuspid valve structure and function. * Trace tricuspid regurgitation. * No evidence of pulmonary hypertension. Pulmonic Valve * Normal pulmonic valve structure and function. * No pulmonic regurgitation. Aorta * Normally sized aortic root. Pericardium * The pericardium appears normal. IVC * Normal IVC dimensions and inspiratory collapse. Pulmonary Artery * Normal visualized portions of the main pulmonary artery. Consult Discharge Plan - Plan Referrals: NONE,PCP [Primary Care Provider] - <Juan Abbasi - Last Filed: 08/22/18 15:50> Hospitalist Progress Note - Encounter Date of Encounter: 08/22/18 - Exam Vitals: Temp Pulse Resp BP Pulse Ox 97.9 F 83 18 130/84 97 08/22/18 11:44 08/22/18 11:44 08/22/18 11:44 08/22/18 11:44 08/22/18 11:44 - Assessment and Plan (1) V-tach Current Visit: Yes Status: Resolved (2) Caffeine adverse reaction Current Visit: Yes Status: Acute (3) Exposure to phentermine Current Visit: Yes Status: Acute (4) Hypertension Current Visit: Yes Status: Chronic (5) Sleep apnea Current Visit: Yes Status: Chronic (6) Morbid obesity with BMI of 40.0-44.9, adult Current Visit: Yes Status: Chronic - Time Spent with Patient Total time spent is greater than 50% in coordination of care (as documented) at patient's floor/unit and/or counseling patient: Internal Medicine: Result - Labs CBC & Chem 7: 08/22/18 02:49 08/22/18 02:49 Labs: Short CBC 08/22/18 Range/Units 02:49 WBC 12.1 H (4.3-11.1) K/mcL Hgb 15.4 (12.9-16.9) g/dL Hct 47.0 (37.5-50.1) % Plt Count 265 (140-400) K/mcL Neutrophils # 5.2 (1.6-8.9) K/mcL BMP 08/22/18 02:49 Sodium 138 Potassium 4.0 Chloride 107 Carbon Dioxide 25 BUN 12 Creatinine 0.86 Glucose 104 Calcium 9.4 - ABG Interpretation ABG results: PT/INR, D-dimer PT 12.1 Seconds (9.4-12.1) 08/21/18 10:14 - Attending Attestation I examined this patient and my medical decision-making was reviewed with the Resident Physician on 08/22/18. I agree with the documented findings, disposition and treatment plan as described except to the extent set forth below. Mr Abel is currently admitted for atrial fibrillation and VT. He remians moderate to high risk due to potential for worsening clinical and cardiac status. Mr Abel is up in chair and feels well. No fever or chills. Exam as above. Heart irreg and not tachy. Plan for SHASHI/cardioversion tomorrow. <Maggie Sawant - Last Filed: 08/22/18 13:22> (3) Hypertension Qualifiers: Hypertension type: unspecified Qualified Code(s): I10 - Essential (primary) hypertension (4) Leukocytosis Qualifiers: Leukocytosis type: unspecified Qualified Code(s): D72.829 - Elevated white blood cell count, unspecified (5) Exposure to phentermine Qualifiers: Encounter type: sequela Qualified Code(s): T50.5X5S - Adverse effect of appetite depressants, sequela (6) Obesity Qualifiers: Obesity type: due to excess calories Obesity classification: adult class 3 (BMI >= 40) Serious obesity comorbidity presence: without serious comorbidity Body mass index: BMI 40.0-44.9 Qualified Code(s): E66.01 - Morbid (severe) obesity due to excess calories; Z68.41 - Body mass index (BMI) 40.0-44.9, adult (7) Caffeine adverse reaction Qualifiers: Encounter type: sequela Qualified Code(s): T43.615S - Adverse effect of caffeine, sequela (8) Sleep apnea Qualifiers: Sleep apnea type: unspecified type Qualified Code(s): G47.30 - Sleep apnea, unspecified <Juan Abbasi - Last Filed: 08/22/18 15:50> (2) Caffeine adverse reaction Qualifiers: Encounter type: sequela Qualified Code(s): T43.615S - Adverse effect of c affeine, sequela (3) Exposure to phentermine Qualifiers: Encounter type: sequela Qualified Code(s): T50.5X5S - Adverse effect of appetite depressants, sequela (4) Hypertension Qualifiers: Hypertension type: essential hypertension Qualified Code(s): I10 - Essential (primary) hypertension (5) Sleep apnea Qualifiers: Sleep apnea type: obstructive Qualified Code(s): G47.33 - Obstructive sleep apnea (adult) (pediatric)
[2018-08-22] MEDS: Heparin 25,000 UNIT/250 ML D5W 25,000 UNIT/250 ML IV.SOLN IVC SCH ×4 (07:49→21:25)
--- NOTE | 2018-08-22 09:09 | Cardiology Progress Note ---
Date of Encounter: 08/22/18 Time of Encounter: 09:07 Assessment and Plan (1) V-tach Current Visit: Yes Status: Acute VT and A-Fib RVR on presentation. VT appears to be outflow tract. Suspect secondary to taking phentermine for weight loss, drinking 2-3 energy drinks/day. Symptoms of dizziness, lightheadedness, palpitations and chest discomfort. Was loaded and started on amio gtt, stopped 08/21. No ventricular arrhythmias overnight. Continue BB. K, Mag, TSH WNL. Troponin negative x 2. TTE LVEF 60-65%. Normal LV chamber size and function. Mild cLVH. Indeterminate diastolic function. Normal RV structure and function.No evidence of phtn. No significant valvular dysfunction. Discussed with Dr. Chowdary. Plan for LHC tomorrow to r/o ischemic cause. R/B/A discussed. Pt agrees to proceed. LHC tomorrow. (2) Atrial fibrillation with RVR Current Visit: Yes Status: Acute As above, new diagnosis of A-Fib RVR and VT while taking phentermine, drinking 2-3 energy drinks/day. Rate controlled on PO BB. Recommend outpt sleep study. [id number] 1 (HTN). Low CVA risk. On heparin gtt. Continues to be in A-Fib. Plan for SHASHI/DCCV tomorrow to restore SR. Will consent for SHASHI/DCCV and LHC tomorrow. Will need to be anticoagulated 1 month post DCCV. Discussion w patient/family: The assessment and plan as outlined above was discussed with the patient and/or family members who expressed understanding and agreement. All questions were answered. Thank you for involving us in the care of your patient. Please call with any questions. I will discuss all the above with Dr. Chowdary and make changes as necessary. Subjective Principal diagnosis: VT, A-Fib Interval history: Reports continued palpitations this AM. Denies chest pain or dyspnea. Objective Vital Signs, Last 4 Hours Pulse Resp BP Pulse Ox 08/22/18 07:51 105 18 121/88 100 08/22/18 07:31 76 Vital Signs Temp Pulse Resp BP Pulse Ox 08/22/18 07:51 105 18 121/88 100 08/22/18 07:31 76 08/22/18 04:40 76 08/22/18 02:20 97.8 F 89 18 110/89 98 08/22/18 00:15 75 08/21/18 23:32 98.6 F 83 16 129/91 99 08/21/18 20:48 98.7 F 87 16 133/92 96 08/21/18 20:13 78 08/21/18 17:00 76 18 106/89 92 08/21/18 16:58 73 17 124/78 95 08/21/18 16:00 85 18 124/78 95 08/21/18 15:00 72 18 123/80 94 08/21/18 14:00 76 19 126/78 92 08/21/18 12:02 98.3 F 69 18 134/94 94 08/21/18 12:00 82 19 134/94 97 08/21/18 11:00 82 18 139/102 93 08/21/18 10:00 81 18 137/92 94 08/21/18 09:10 90 18 136/98 93 Intake and Output 08/21/18 08/22/18 08/22/18 23:59 07:59 15:59 Intake Total 220 / 1880 120 / 150 30 / 150 Balance 220 / 1150 120 / 150 30 / 150 Intake: IV Fluids 100 / 1400 120 / 150 30 / 150 Heparin 25,000 UNIT/250 ML D5W 100 / 100 120 / 150 30 / 150 25,000 unit In 250 ml @ 14 UNIT /KG/HR 19.53 mls/hr IVC . [id number] [facility] Rx#:[id number] Oral 120 / 480 Other: Meal Dinner Percent of Meal Consumed 100% General: Conversant, No Apparent Distress HEENT: Atraumatic, Normocephaly, Mucus Membranes Moist Neck: No JVD, Normal carotid pulses Cardiac: Other (irregularly irregular) Lungs: Normal Breath Sounds, No Wheeze, Rales, Rhonchi Neuro: Alert and responsive, No focal deficits noted Abdomen: Soft, Non-Tender Skin: No rashes noted on visualized skin Musculoskeletal: No Chest Wall Tenderness Extremities: No Clubbing, No Cyanosis, No Edema, Normal Pulses Results 08/22/18 02:49 08/22/18 02:49 Lab Results 08/21/18 08/21/18 08/21/18 09:17 10:14 10:14 WBC 12.6 H Hgb 14.9 Hct 44.7 Plt Count 262 INR 1.1 Sodium Potassium Chloride Carbon Dioxide BUN Creatinine Glucose Calcium Troponin I < 0.03 08/22/18 08/22/18 02:49 02:49 WBC 12.1 H Hgb 15.4 Hct 47.0 Plt Count 265 INR Sodium 138 Potassium 4.0 Chloride 107 Carbon Dioxide 25 BUN 12 Creatinine 0.86 Glucose 104 Calcium 9.4 Troponin I Short CBC 08/22/18 08/21/18 Range/Units 02:49 10:14 WBC 12.1 H 12.6 H (4.3-11.1) K/mcL Hgb 15.4 14.9 (12.9-16.9) g/dL Hct 47.0 44.7 (37.5-50.1) % Plt Count 265 262 (140-400) K/mcL Neutrophils # 5.2 (1.6-8.9) K/mcL BMP 08/22/18 Range/Units 02:49 Sodium 138 (136-145) mEq/L Potassium 4.0 (3.5-5.1) mEq/L Chloride 107 (98-107) mEq/L Carbon Dioxide 25 (23-29) mEq/L BUN 12 (6-20) mg/dL Creatinine 0.86 (0.70-1.30) mg/dL Glucose 104 (70-105) mg/dL Calcium 9.4 (8.6-10.3) mg/dL Cardiac Enzymes 08/21/18 Range/Units 09:17 Troponin I < 0.03 (< 0.04) ng/mL Impressions Echocardiogram 08/21/18 08:53 Impressions: LVEF 60-65%. Normal LV chamber size and function. Mild concentric left ventricular hypertrophy. Indeterminate diastolic function. Normal right ventricular structure and function. No evidence of pulmonary hypertension. No significant valvular dysfunction. Left Ventricular Wall Motion: Rest Echo Findings All wall segments showed normal motion. Findings: Study Quality * Technically adequate exam. ECG Findings * Atrial fibrillation. Left Ventricle * LVEF 60-65%. * Normal LV chamber size and function. * Mild concentric left ventricular hypertrophy. * Indeterminate diastolic function. Right Ventricle * Normal right ventricular structure and function. Left Atrium * Mildly dilated left atrium. Right Atrium * Normal right atrial size. Interatrial Septum * Interatrial septum not well evaluated. Aortic Valve * Trileaflet aortic valve with normal function. * No aortic regurgitation. * No aortic stenosis. Mitral Valve * Normal mitral valve structure and function. * No mitral regurgitation. * No mitral stenosis. Tricuspid Valve * Normal tricuspid valve structure and function. * Trace tricuspid regurgitation. * No evidence of pulmonary hypertension. Pulmonic Valve * Normal pulmonic valve structure and function. * No pulmonic regurgitation. Aorta * Normally sized aortic root. Pericardium * The pericardium appears normal. IVC * Normal IVC dimensions and inspiratory collapse. Pulmonary Artery * Normal visualized portions of the main pulmonary artery. Active Medications Heparin Sodium (Porcine) (Heparin) 9,000 unit IVP Q6HR PRN PRN Reason: SEE COMMENTS Stop: 02/20/19 09:49 Heparin Sodium (Porcine) (Heparin) 4,500 unit IVP Q6H PRN PRN Reason: SEE COMMENTS Stop: 02/20/19 09:49 Heparin Sodium/Dextrose (Heparin 25,000 Unit/250 Ml D5w) 25,000 unit in 250 mls @ 19.53 mls/hr IVC .[id number] [facility]; Protocol Stop: 02/20/19 10:01 Last Admin: 08/22/18 08:13 Dose: 10.97 unit/kg/hr, 15.3 mls/hr Documented by: Metoprolol Tartrate (Lopressor) 25 mg PO BID ASHLEY Stop: 02/20/19 09:01 Last Admin: 08/22/18 08:02 Dose: 25 mg Documented by: Naloxone HCl (Narcan) 0.4 mg IVP Q2MPRN PRN PRN Reason: SEE COMMENTS Stop: 02/20/19 02:40 Oxycodone/Acetaminophen (Percocet 5/325) 1 each PO BID PRN PRN Reason: Pain Stop: 02/20/19 02:43 - Imaging and Cardiology Echo: report reviewed - EKG Interpretation EKG results cardiology: other (12 hr tele ACG HR 80, A-Fib. No NSVT noted.) Consult Discharge Plan - Plan Referrals: NONE,PCP [Primary Care Provider] -
[2018-08-22] MEDS ORDERED: Acetaminophen 325 MG TABLET PO PRN (12:44)
[2018-08-23 05:20] LABS: Basophils # 0.1 K/mcL (0.0-0.2); Basophils % 0.6 %; Eosinophils # 0.3 K/mcL (0.0-0.6); Eosinophils % 2.8 %; Hematocrit 43.3 % (37.5-50.1); Immature Granulocytes % 0.4 % (0-4); Lymphocytes # 4.4 K/mcL (0.6-4.6); Lymphocytes % 44.7 %; Mean Corpuscular HGB Conc 32.3 g/dL (31.6-35.5); Mean Corpuscular Hemoglobin 29.4 pg (28.0-33.3); Mean Corpuscular Volume 90.8 fL (83.0-100.0); Mean Platelet Volume 10.1 fL (9.4-12.4); Monocytes # 0.9 K/mcL (0.0-1.3); Monocytes % 9.5 %; Neutrophils # 4.2 K/mcL (1.6-8.9); Platelet Count 226 K/mcL (140-400); Red Blood Count 4.77 M/mcL (4.19-5.50); Red Cell Distribution Width 13.3 % (11.5-14.5); White Blood Count 9.9 K/mcL (4.3-11.1)
[2018-08-23 05:37] LABS: BUN/Creatinine Ratio 13 (6-26); Blood Urea Nitrogen 13 mg/dL (6-20); Calcium 9.3 mg/dL (8.6-10.3); Carbon Dioxide 30 mEq/L (23-29); Chloride 104 mEq/L (98-107); Glucose 106 mg/dL (70-105); Osmolality,Calculated 297 (280-300); Potassium 4.5 mEq/L (3.5-5.1); Sodium 143 mEq/L (136-145); eGFR For African Americans > 60 (> 60); eGFR For Non-African Americans > 60 (> 60)
[2018-08-23] MEDS ORDERED: Lidocaine Viscous Oral Soln 15 ML SOLUTION MM PRN (08:08)
[2018-08-23] MEDS ORDERED: *HR* FentaNYL (PF) 100 MCG/2 ML VIAL IVP PRN (08:08)
[2018-08-23] MEDS ORDERED: *HR* Midazolam HCl 5 MG/5 ML VIAL IVP PRN (08:09)
[2018-08-23] MEDS ORDERED: 0.9 % Sodium Chloride 500 ML IVC ONE (08:09)
--- NOTE | 2018-08-23 08:45 | Event Note ---
Date of Encounter: 08/23/18 Time of Encounter: 08:45 - Cardiology Event Note Pt spontaneously converted to SR. Cancel SHASHI/DCCV. Will proceed with C today for VT. R/B/A discussed. Pt agrees to proceed. Further recs pending cath results.
--- NOTE | 2018-08-23 09:08 | Internal Med Progress Note ---
Hospitalist Progress Note - Encounter Date of Encounter: 08/23/18 Time of Encounter: 09:08 - Exam Vitals: Temp Pulse Resp BP Pulse Ox 98.0 F 62 16 128/86 99 08/23/18 07:32 08/23/18 07:32 08/23/18 07:32 08/23/18 07:32 08/23/18 07:32 - Time Spent with Patient Total time spent is greater than 50% in coordination of care (as documented) at patient's floor/unit and/or counseling patient: Internal Medicine: Result - Labs CBC & Chem 7: 08/23/18 04:35 08/23/18 04:35 Labs: Short CBC 08/23/18 Range/Units 04:35 WBC 9.9 (4.3-11.1) K/mcL Hgb 14.0 (12.9-16.9) g/dL Hct 43.3 (37.5-50.1) % Plt Count 226 (140-400) K/mcL Neutrophils # 4.2 (1.6-8.9) K/mcL BMP 08/23/18 04:35 Sodium 143 Potassium 4.5 Chloride 104 Carbon Dioxide 30 H BUN 13 Creatinine 1.00 Glucose 106 H Calcium 9.3 - ABG Interpretation ABG results: PT/INR, D-dimer PT 12.1 Seconds (9.4-12.1) 08/21/18 10:14 Consult Discharge Plan - Plan Referrals: NONE,PCP [Primary Care Provider] -
--- NOTE | 2018-08-23 12:27 | Electrocardiograph Report ---
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
--- NOTE | 2018-08-23 13:24 | Electrocardiograph Report ---
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
[2018-08-23] MEDS ORDERED: *HR* Heparin 10,000 UNIT/10 ML VIAL ONE (16:07)
[2018-08-23] MEDS ORDERED: Nitroglycerin 1,000 MCG/10 ML VIAL IV ONE (16:07)
[2018-08-23] MEDS ORDERED: Heparin 1,000 UNITS/500 mL 500 ML ONE (16:07)
[2018-08-23] MEDS ORDERED: 0.9 % Sodium Chloride 1,000 ML ONE (16:07)
[2018-08-23] MEDS ORDERED: ISOVUE-370 200 ML INFUS..BTL ONE (16:07)
--- NOTE | 2018-08-23 16:21 | Discharge Summary ---
- NOTES TO OUTPATIENT PROVIDER Notes to Outpatient Provider: - Left heart catheterization revealed mild coronary artery disease and normal ejection fraction. Patient will be discharged on aspirin. Follow up with cardiology within 1-2 weeks. - Otherwise, recommend cessation of caffeine intake, discontinuation of phentermine, increased hydration. - Recommend outpatient sleep study. Orders not resulted at time of discharge: Pending orders 08/22/18 09:13 CL Cardiac Catheterization [CL] Routine 08/23/18 07:10 EKG [ECG 12 lead ECG] [ECG] Stat 08/23/18 23:00 Heparin anti-factor XA UFH [COAG] Timed Date of Encounter: 08/23/18 Time of Encounter: 16:21 - Discharge Diagnosis (1) Atrial fibrillation with RVR Priority: Primary Status: Acute (2) V-tach Priority: Secondary Status: Resolved (3) Hypertension Priority: Secondary Status: Chronic Qualifiers: Hypertension type: essential hypertension Qualified Code(s): I10 - Essential (primary) hypertension (4) Obesity Priority: Secondary Status: Chronic Qualifiers: Obesity type: due to excess calories Obesity classification: adult class 3 (BMI >= 40) Serious obesity comorbidity presence: without serious comorbidity Body mass index: BMI 40.0-44.9 Qualified Code(s): E66.01 - Morbid (severe) obesity due to excess calories; Z68.41 - Body mass index (BMI) 40.0-44.9, adult (5) Sleep apnea Priority: Secondary Status: Chronic Qualifiers: Sleep apnea type: obstructive Qualified Code(s): G47.33 - Obstructive sleep apnea (adult) (pediatric) Hospital course: Mr. Abel is a 48 year old male with past medical history significant for obesity, bilateral total knee arthroplasties who initially presented to the emergency department after complaining of lightheadedness, weakness, palpitations, diaphoresis. Patient stated that he had been working a lot recently, and additionally had been taking phentermine for weight loss, drinking energy drinks, sleeping very little, working heavily in the yard prior to onset of his symptoms. He denied any chest pain or shortness of breath at this time. Of note, patient did report that he had had similar symptoms in the past approximately 10 years ago when he was taking phentermine for weight loss. He came in, and sat down on the couch, but continued to feel the same symptoms. He then called EMS. On the way to the hospital, EMS reported patient was going back and forth in between ventricular tachycardia and atrial fibrillation. Noted that heart rate varied between 150s up to 250s during transport. In the ED, amiodarone bolus and drip were administered. Patient had negative troponins. EKG did show atrial fibrillation and PVCs, but no acute ST changes. Echocardiography showed no signs of congestive heart failure with LVEF = 6065%. Cardiology was consulted. Cardiology started patient on beta chelsie. Additionally recommended aspirin given CHADS-VASc = 1. Given patient was continually in atrial fibrillation, cardiology considered SHASHI guided cardioversion prior to discharge. Additionally recommended ischemic evaluation. Left heart catheterization prior to discharge. However, this morning, patient spontaneously converted to sinus rhythm. SHASHI/cardioversion was canceled. Left heart catheter was still planned. Left heart catheterization revealed mild coronary artery disease and normal ejection fraction. Afterwards, patient was stable without any acute complaints. Plan for discharge today. Will be discharged on long-term aspirin therapy. Follow up with cardiology outpatient. Additionally, cardiology recommended outpatient sleep study. Discharge discussed with: patient, family - Time Spent with Patient Total time spent providing and/or coordinating discharge services: Time spent: Less than 30 minutes, D/C greater than 8 hours after Admission - Discharge Medications Prescriptions: New Aspirin 81 mg PO DAILY 30 Days #30 tab.chew Metoprolol [Lopressor] 25 mg PO BID 30 Days #60 tablet Continued DiphenhydraMINE [Benadryl] 25 mg PO HS PRN PRN Reason: Insomnia Discontinued Oxycodone HCl/Acetaminophen [Percocet 5-325 mg Tablet] 1 each PO BID PRN PRN Reason: Pain Phentermine HCl [Adipex-P] 37.5 mg PO DAILY Home Medications: DiphenhydraMINE [Benadryl] 25 mg PO HS PRN 08/21/18 [History] Aspirin 81 mg PO DAILY 30 Days #30 tab.chew 08/23/18 [Rx] Metoprolol [Lopressor] 25 mg PO BID 30 Days #60 tablet 08/23/18 [Rx] Allergies/Adverse Reactions: Allergy/AdvReac Type Severity Reaction Status Date / Time No Known Allergies Allergy Verified 08/22/18 11:19 Date of admission: 08/22/18 12:24 Primary care physician: PCP NONE Consults: 08/21/18 01:03 Consult to Cardiology [CONS] Stat Comment: Consulting Provider: [facility] Reason for Consult: afib w/ RVR, Vtach Time Notified: 01:03 Call Completed: Yes Discharging clinician: Margarito Rubi Anticipated date of discharge: 08/23/18 - Constitutional Vitals: Temp Pulse Resp BP Pulse Ox 98.1 F 58 16 125/77 100 08/23/18 10:55 08/23/18 10:55 08/23/18 10:55 08/23/18 10:55 08/23/18 10:55 General appearance: Present: A&O X 3, no acute distress Exam: Pleasant 48-year-old male resting comfortably in chair next to bedside, accompanied by and parents. - Head Head exam: Present: atraumatic, normal inspection, normocephalic - Eye Eye exam: Present: EOMI - ENT ENT exam: Present: mucous membranes moist - Neck Neck exam general surgery: Present: full ROM, supple - Respiratory Respiratory exam: Present: CTAB. Absent: respiratory distress - Cardiovascular Cardiovascular exam: Present: bradycardia, RRR, +S1, +S2 - GI/Abdominal GI/Abdominal exam: Present: normal bowel sounds, soft, no peritoneal signs - Extremities Exam Extremities exam: Present: normal inspection, warm, radial pulses palpable and symmetrical - Neurological Exam Neurological exam: Present: alert, oriented X3, no focal deficits - Psychiatric Psychiatric exam: Present: normal affect, normal mood - Skin Skin exam: Absent: rash - Patient Status Disposition: Home, Self-Care Condition: Fair Functional capacity at discharge: independent ambulation Overall status at discharge: patient is progressing back to baseline - Discharge Instructions Instructions: Atrial Fibrillation (DC) Follow Up With: NONE,PCP [Primary Care Provider] - [facility] [Outside] (Follow-up within 1 week.) [facility] [Provider Group] (Follow-up within 1-2 weeks.) - Diet and Activity Activity: increase activity as tolerated Diet: low fat, low cholesterol, low salt diet
[2018-08-23] MEDS ORDERED: *HR* Midazolam HCl 2 MG/2 ML VIAL ONE ×2 (16:24→16:33)
[2018-08-23] MEDS ORDERED: *HR* FentaNYL (PF) 100 MCG/2 ML VIAL ONE (16:25)
--- NOTE | 2018-08-23 16:27 | Pre-Sedation Evaluation ---
Pre-sedation evaluation - Pre-sedation checklist Date of procedure: 08/23/18 Procedure: [facility] Recent Vitals: Last Vital Signs Temp 98.1 F 08/23/18 10:55 Pulse 58 08/23/18 10:55 Resp 16 08/23/18 10:55 BP 125/77 08/23/18 10:55 Pulse Ox 100 08/23/18 10:55 H&P (including ROS) documented in medical record: Yes Previous reaction to sedatives/anesthetics: No Dietary Status: NPO after Midnight Airway Assessment: Patient can open mouth completely, TMJ function normal ASA Classification *see protocol: CLASS II-Mild systemic disease Plan of Care: Pt appropriate candidate for procedure/moderate/conscious sedation, Risks/benefits of procedure/sedation discussed w/ patient/family Cardiac Registry (Cardio Only) - Functional Capacity Functional Capacity: >=4 METS with symptoms - Clincal Frailty Scale Clinical Frailty Scale: Managing Well
--- NOTE | 2018-08-23 16:52 | Event Note ---
Date of Encounter: 08/23/18 Time of Encounter: 17:00 - Cardiology Event Note Mild CAD and normal EF by [facility].
--- NOTE | 2018-08-23 17:08 | Invasive Diagnostic Lab Proc ---
Name: Bryson Abel Date of Study: 08/23/2018 Date: 1970 Ht: 72.0in Medical Record#: [id number] Age: 48 Wt: 308.65lb Gender: Male BSA: 2.56 Order #: [id number] BMI: 41.8 Physicians Procedure Physician: Ermias Jimenez MD, [facility] Referring MD: Referring MD: Staff Name Position Time In Juan Singh RN Guide 04:20 PM Reid Azevedo RN Guide 04:20 PM Katerina Pendleton RT (R) Scrub 04:20 PM Erica Abel RT (R) Scrub 04:20 PM Hilda Marte RT 04:50 PM Katerina Moyer RT (R) Monitor 05:00 PM Indications Indication Unstable Angina Procedures Performed Procedure L HRT ARTERY/VENTRICLE ANGIO Pre-Procedure Checklist Informed consent is complete signed and on chart. H&P is on chart. ID band is on and ID verified with patient. Patient NPO for procedure The procedure was described for the patient and questions were answered. ECG is on chart. Plan of Care Patient will tolerate the procedure without complications. Adequate level of comfort will be maintained. Hemodynamics will remain stable Patient will recover from procedure without complications. Respiratory function will be maintained. Cardiac rhythm will remain stable. Patient temperature will be maintained. Patient and/or family have verbalized understanding of the procedure. Patient Education Chief Complaint/Reason for Test: Cardiac Cath Developmental Category: Adult (18-64 years) Developmentally Appropriate for Age: Yes Learning Barriers: None Education Needs: Procedure Education Method: Verbal Information Taught: Cardiac Cath Educational Evaluation: Able to repeat information Intravenous Access Time IV Size Location DC'd Fluid/Drip Rate Units RN 20g 1 03/05" Patent On Arrival Rt Arm 0.9NaCl ml/hr Juan Singh RN Allergies No Known Allergies Vital Signs Time BP (mmHg) HR (bpm) O2 Sat. RR (bpm) LOC 04:20 PM / % 5 = Fully awake and oriented or at pre-proc level 04:20 PM / % 5 = Fully awake and oriented or at pre-proc level 04:25 PM 130 / 69 69 99 % 13 04:29 PM 112 / 58 78 99 % 15 04:34 PM 115 / 56 72 99 % 22 04:39 PM 92 / 50 77 98 % 21 04:44 PM 97 / 52 79 98 % 22 04:49 PM 99 / 55 79 99 % 22 Procedural Medications Time Medication Dose Units Method Given By 04:20 PM Oxygen 2 L/min nasal cannula Angeles Yang RN 04:26 PM Versed 2 mg Intravenous Angeles Yang RN 04:26 PM Fentanyl 50 mcg Intravenous Angeles Yang RN 04:34 PM Versed 2 mg Intravenous Angeles Yang RN 04:35 PM Lidocaine 2% 0.5 ml Subcutaneous Ermias Jimenez MD, FACC 04:36 PM Heparin 4000 units Nitroglycerin 200 mcg Verapamil 2.5 mg Intraarterial Ermias Jimenez MD, FACC Dave Score Preprocedure Postprocedure Activity 2- Moves 4 extremities sustained head lift Activity 2- Moves 4 extremities sustained head lift Circulation 2- SBP +/= 20 points of pre-anesthetic level Circulation 2- SBP +/= 20 points of pre-anesthetic level Consciousness 2- Awake and alert oriented x 3 Consciousness 2- Awake and alert oriented x 3 O2 Saturation 2- Able to maintain O2 satruation of 92% on room air O2 Saturation 2- Able to maintain O2 satruation of 92% on room air Respiratory 2- Able to deep breathe and cough well Respiratory 2- Able to deep breathe and cough well Total Score 10 Total Score 10 Contrast Agent: Isovue Total Contrast: 70 ml Fluoro Dose: 60 mGy Procedure Log Time Note Enter By 04:11 PM CathStat 04:20 PM Katerina Moyer RT (R) Position: Monitor Time in: 16:20 tsites 04:20 PM 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 Informed consent was obtained. tsites 04:20 PM Procedure start 16:20 tsites 04:20 PM Reid Azevedo RN Position: Guide Time in: 16:20 tsites 04:20 PM Katerina Pendleton RT (R) Position: Scrub Time in: 16:20 tsites 04:20 PM Erica Abel RT (R) Position: Scrub Time in: 16:20 tsites 04:20 PM Time: 16:20 Oxygen on at 2 L/min per nasal cannula by Juan Singh RN tsites 04:20 PM Time: 16:20 Patient comfortable and pain free: Yes tsites 04:20 PM Time: 16:20LOC: 5 = Fully awake and oriented or at pre-proc level tsites 04:20 PM Clinical Presentation: Unstable angina tsites 04:23 PM Recorded ECG: HR=85 Condition=Condition 1 04:23 PM Vitals capture started with the following parameters, Patient=Adult, Interval=5 min, Initial Ljintezq=514 mmHg, Deflation Rate=3 mmHg, Cuff placed on Right Arm 04:24 PM Hair removed from procedure site in holding area using clippers. Right wrist and Right groin prepped with Chloraprep by Juan Singh RN, then patient was draped. Skin intact. tsites 04:25 PM HR=69 bpm, YPGR=489/69 mmhg, SpO2=99.0 %, Resp=13 B/min 04: PM Time: 16:26 Versed 2 mg Intravenous Given by Angeles Yang RN tsites 04: PM Time: 16:26 Fentanyl 50 mcg Intravenous Given by Angeles Yang RN tsites 04:29 PM HR=78 bpm, MHWG=321/58 mmhg, SpO2=99 %, Resp=15 B/min 04:33 PM Time out was performed according to hospital policy. Conscious sedation and anesthesia was achieved (see medication log with in this report above) tsites 04:34 PM Time: 16:34 Versed 2 mg Intravenous Given by Angeles Yang RN tsites 04:34 PM HR=72 bpm, QTBB=937/56 mmhg, SpO2=99 %, Resp=22 B/min 04:35 PM Time: 16:35 0.5 ml Lidocaine 2% to right radial Subcutaneous Given by Ermias Jimenez MD, FACC tsites 04:35 PM Time: 16:20LOC: 5 = Fully awake and oriented or at pre-proc level tsites 04:36 PM Access obtained by percutaneous puncture. 5/6Fr 10cm Terumo Glidesheath sheath placed in right Radial artery. [id number] tsites 04:36 PM Time: 16:36 Patient given 4,000 units Heparin, 200 mcg Nitroglycerin, and 2.5 mg Verapamil Intraarterial by Ermias Jimenez MD, FACC. This is given to reduce risk of vessel spasm and thrombosis. tsites 04:37 PM 5Fr TIG catheter inserted over the wire DN tsites 04:37 PM 0.035 260cm Navilyst 3mmJ wire [id number] tsites 04:38 PM RCA angiography performed in multiple views. tsites 04:39 PM HR=77 bpm, NIBP=92/50 mmhg, SpO2=98.0 %, Resp=21 B/min 04:39 PM Recorded Pressure: Ao, HR=79, Condition=Condition 1 (Aorta) Ao 99/77/88 04:39 PM LCA angiography performed in multiple views. tsites 04:39 PM Recorded Pressure: Ao, HR=77, Condition=Condition 1 (Aorta) Ao 92/73/84 04:41 PM Lesion found in Proximal LAD. Pre Stenosis: 15 Pre SAMI Flow: tsites 04:41 PM Proximal Left Anterior Descending Coronary Artery with 15% stenosis. If graft is supplying this territory, 0 % stenosis. tsites 04:42 PM Catheter removed tsites 04:42 PM 5Fr FR 4 catheter inserted over the wire [facility] tsites 04:44 PM HR=79 bpm, NIBP=97/52 mmhg, SpO2=98.0 %, Resp=22 B/min 04:45 PM Lesion found in Proximal RCA. Pre Stenosis: 40 Pre SAMI Flow: 2: Partial Flow/Perfusion (> 1 but < 3) tsites 04:45 PM Lesion found in Distal RCA. Pre Stenosis: 30 Pre SAMI Flow: 2: Partial Flow/Perfusion (> 1 but < 3) tsites 04:46 PM Catheter removed tsites 04:46 PM 5Fr Pigtail catheter inserted over the wire [facility] tsites 04:46 PM Catheter crossed the aortic valve and was selectively placed in the left ventricle. Pressures recorded on pullback for left heart catheterization. tsites 04:47 PM Pressure channel 1 zero failed. 04:47 PM Pressure channel 1 zeroed. 04:47 PM Recorded Pressure: LV, HR=79, Condition=Condition 1 (Left Ventricle) LV 108/5/12 04:47 PM Recorded Pressure: LV, Ao, HR=78, Condition=Condition 1 (Left Ventricle) LV 125/9/15, (Aorta) Ao 121/81/100 04:48 PM Bolus angiogram of left Ventricle complete: 12 ml/sec for a total of 35 mls tsites 04:49 PM Coronary Dominance: right tsites 04:49 PM HR=79 bpm, NIBP=99/55 mmhg, SpO2=99.0 %, Resp=22 B/min 04:50 PM Hilda Marte RT Position: Time in: 16:50 tsites 04:52 PM Procedure completed at 16:52 08/23/2018 tsites 04:52 PM Did you address SAMI flow and Dominance? YesCoronary Dominance: right tsites 04:53 PM Sign out completed: Radiation Dose 450 mGy, 59.9 Gy/cm2 Fluoro Time: 3.0 Isovue 370 - 200ml contrast 70 ml given by Ermias Jimenez MD, [facility]. Complications: None. 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 Sedation minutes 27. Cardiac Rehab Consult needed: No. Confirmed administered medications: Yes tsites 04:53 PM Isovue 370 - 200ml,1 Bottle(s) used. tsites 04:54 PM Arterial sheath pulled, Vasc Band closure device used and was Successful S/N. tsites 04:54 PM 8 ml air in Vasc Band. tsites 04:54 PM Estimated Blood Loss: minimal tsites 04:54 PM Post ECG NSR tsites 04:54 PM Post Blood Pressure 99/55 tsites 04:55 PM 16:55 Post Pulses Rt Radial 1+ tsites 04:55 PM Information taught Cardiac Cath and Vasc Band tsites 04:55 PM Education needs Procedure, Plan of Care, and Responsibilities of Patient in Care tsites 04:55 PM Learning barriers :None tsites 04:55 PM Education Methods Verbal tsites 04:55 PM Education evaluation Able to repeat information tsites 04:55 PM Site status No bleeding/hematoma - Rt Wrist as reported by Erica Abel RT (R) at 16:55 tsites 04:55 PM Delay to floor No tsites 04:55 PM Patient out of room: 16:55 tsites 04:56 PM Report given to ryan LEE Pt taken to 2N Room #9. 16:56 tsites 04:56 PM Family placed in consult room. tsites Complications Complication None Hemodynamics Pressures Site Systolic/A Wave Diastolic/V Wave Mean AO 99 77 88 AO 92 73 84 LV 108 5 12 LV 125 9 15 AO 121 81 100 Post Procedure Information Blood Pressure: 99/55 mmHg Rhythm: NSR Post procedural instructions were given Closure Device Time Device Success/Fail 08/23/2018 4:57:00 PM Mechanical Compression Successful Site Checks Time Location Status Staff Sheath In? Note 04:55 PM Rt Wrist No bleeding/hematoma Erica Abel RT (R) Pulses Time Site Pre-Procedure Post-Procedure Note Bilateral DP & PT 2+ Bilateral radial 2+ 4:55:00 PM Rt Radial 1+ Updated by [facility], RT (R) on 08/23/2018 5:00:52 PM [facility] electronically signed on 08/23/2018 5:01:08 PM with status of Final
[2018-08-23] MEDS ORDERED: *HR* Heparin 5,000 UNIT/ML VIAL SQ SCH (18:00)
[2018-08-24 03:19] VITALS: BP 104/76
[2018-08-24] MEDS ORDERED: Aspirin 81 MG TAB.CHEW PO SCH (09:00)
--- NOTE | 2018-08-25 17:41 | Electrocardiograph Report ---
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
== END 2018-08-23 19:35 | disposition home or self-care (01) | DRG 287 ==
LOC: EMEROOARM 23:50 → 2NNU 23:50 → SUATTDRO 08-21 02:19 → 2NNU 08-21 03:10
PROVIDERS: ADMIT Internal Medicine; ATTEND Internal Medicine

== ENCOUNTER 2018-11-02 18:29 | Observation (INO) ==
[2018-11-02] MEDS ORDERED: *HR* Metoprolol 5 MG/5 ML VIAL IVP STA (19:07)
[2018-11-02 19:27] LABS: Basophils # 0.1 K/mcL (0.0-0.2); Basophils % 0.5 %; Eosinophils # 0.3 K/mcL (0.0-0.6); Eosinophils % 2.4 %; Hematocrit 46.2 % (37.5-50.1); Immature Granulocytes % 0.6 % (0-4); Lymphocytes # 4.7 K/mcL (0.6-4.6); Lymphocytes % 37.3 %; Mean Corpuscular HGB Conc 32.5 g/dL (31.6-35.5); Mean Corpuscular Hemoglobin 28.6 pg (28.0-33.3); Mean Platelet Volume 9.9 fL (9.4-12.4); Monocytes # 1.3 K/mcL (0.0-1.3); Monocytes % 10.2 %; Neutrophils # 6.1 K/mcL (1.6-8.9); Platelet Count 282 K/mcL (140-400); Red Blood Count 5.25 M/mcL (4.19-5.50); Red Cell Distribution Width 13.3 % (11.5-14.5); White Blood Count 12.5 K/mcL (4.3-11.1)
[2018-11-02 19:34] LABS: Prothrombin Time 11.3 Seconds (9.4-12.1)
--- NOTE | 2018-11-02 19:43 | Emergency Department Note ---
Disposition Clinical Impression: Atrial fibrillation with rapid ventricular response, Difficulty breathing Chest pain Qualifiers: Chest pain type: unspecified Qualified Code(s): R07.9 - Chest pain, unspecified Disposition: Admitted As Inpatient Referrals: Sharmila Camara MD [Primary Care Provider] - Forms: ED Satisfaction Letter Time of Disposition: 20:44 General Adult HPI - General Chief complaint: ED Chest Pain Stated complaint: JEFF,Palpatations,Was in ICU For heart Time Seen by Provider: 11/02/18 18:59 Source: patient Limitations: no limitations - History of Present Illness Pain Scale: 0 - Related Data Home Medications Medication Instructions Recorded Confirmed DiphenhydraMINE [Benadryl] 25 mg PO HS PRN 08/21/18 11/02/18 Aspirin [Lo-Dose Aspirin EC] 81 mg PO DAILY 11/02/18 11/02/18 Fluticasone Propionate Nasal 50 mcg NS BID 11/02/18 11/02/18 [Flonase] Metoprolol [Lopressor] 25 mg PO BID 11/02/18 11/02/18 Oxycodone HCl/Acetaminophen 1 each PO Q6HR PRN 11/02/18 11/02/18 [Percocet 5-325 mg Tablet] Allergies Allergy/AdvReac Type Severity Reaction Status Date / Time [place] Allergy Unknown Anaphylaxis Verified 11/02/18 19:17 Past Medical History - Past Medical History Medical history: Reports: atrial fibrillation, hypertension, other Psychiatric history: Reports: no psych history - Social History Smoking Status: Former smoker Smokeless Tobacco Status: No Alcohol use: Reports: none Drug use: Reports: none Physical Exam - General Limitations: no limitations General appearance: alert, in no apparent distress Course Vital Signs Temperature 97.9 F 11/02/18 19:02 Pulse Rate 107 11/02/18 19:02 Respiratory Rate 17 11/02/18 19:02 Blood Pressure 157/97 11/02/18 19:02 O2 Sat by Pulse Oximetry 98 11/02/18 19:02 Temperature 97.9 F 11/02/18 19:02 Pulse Rate 107 11/02/18 19:02 Respiratory Rate 17 11/02/18 19:02 Blood Pressure 157/97 11/02/18 19:02 O2 Sat by Pulse Oximetry 98 11/02/18 19:02 Oxygen Delivery Oxygen Delivery Room Air Medical Decision Making - Lab Data Result diagrams: 11/02/18 19:11 11/02/18 19:11 Lab Results 11/02/18 11/02/18 11/02/18 Range/Units 19:11 19:11 19:11 WBC 12.5 H (4.3-11.1) K/mcL RBC 5.25 (4.19-5.50) M/mcL Hgb 15.0 (12.9-16.9) g/dL Hct 46.2 (37.5-50.1) % MCV 88.0 (83.0-100.0) fL MCH 28.6 (28.0-33.3) pg MCHC 32.5 (31.6-35.5) g/dL RDW 13.3 (11.5-14.5) % Plt Count 282 (140-400) K/mcL MPV 9.9 (9.4-12.4) fL Immature Gran % 0.6 (0-4) % Seg Neutrophils % 49.0 % Lymphocytes % 37.3 % Monocytes % 10.2 % Eosinophils % 2.4 % Basophils % 0.5 % Neutrophils # 6.1 (1.6-8.9) K/mcL Lymphocytes # 4.7 H (0.6-4.6) K/mcL Monocytes # 1.3 (0.0-1.3) K/mcL Eosinophils # 0.3 (0.0-0.6) K/mcL Basophils # 0.1 (0.0-0.2) K/mcL PT 11.3 (9.4-12.1) Seconds INR 1.0 Sodium 138 (136-145) mEq/L Potassium 4.4 (3.5-5.1) mEq/L Chloride 104 (98-107) mEq/L Carbon Dioxide 28 (23-29) mEq/L BUN 15 (6-20) mg/dL Creatinine 0.88 (0.70-1.30) mg/dL Est GFR ( Amer) > 60 (> 60) Est GFR (Non-Af Amer) > 60 (> 60) BUN/Creatinine Ratio 17 (6-26) Glucose 133 H (70-105) mg/dL Calculated Osmolality 289 (280-300) Calcium 9.7 (8.6-10.3) mg/dL Magnesium 2.3 (1.6-2.6) mg/dL Troponin I < 0.03 (< 0.04) ng/mL TSH 1.539 (0.340-5.600) mcIU/mL Attestation Statement - Attestation Attestation: Wendy Ortega D.O., examined this patient and my medical decision-making was reviewed with the Resident Physician. I agree with the documented findings, disposition and treatment plan as described except to the extent set forth below. This is a 48-year-old male with a past medical history of atrial fibrillation and ventricular tachycardia was admitted in July for both previously mentioned who required an extended stay due to continued A. fib that eventually converted on its own prior to cardioversion who presents due to palpitations and shortness of breath. Patient reports symptoms began today. Denies any chest pain. He felt lightheaded at home. He is currently on metoprolol 25 mg twice daily. No other complaints. Exam: Alert, resting comfortably. Heart is irregularly irregular, tachycardic. Lungs are clear to auscultation bilaterally. Abdomen is soft, nondistended, no guarding or rigidity. No lower extremity pitting edema. Alert, mentating appropriate with no focal deficits. Plan: Reviewed his prior admission showing a left heart catheterization that was virtually unremarkable. Patient had spontaneous conversion of A. fib after days of admission and being on amiodarone. He is currently in A. fib RVR with a rate in the 110s. We will give him a dose of Lopressor. Plan to check labs and anticipate admission given his prior arrhythmias. ED Procedure Note: EKG interpretation - I agree with the resident physician's documentation and interpretation of the patient's EKG. Atrial fibrillation with rapid ventricular response with a rate of 117. No gross ST elevations or depressions. No acute ischemic findings. Normal intervals. Patient's labs are grossly unremarkable. Case was discussed with the hospitalist, Dr. Browne who accepts for admission. He did request that we start a heparin drip.
[2018-11-02 19:49] LABS: BUN/Creatinine Ratio 17 (6-26); Blood Urea Nitrogen 15 mg/dL (6-20); Calcium 9.7 mg/dL (8.6-10.3); Carbon Dioxide 28 mEq/L (23-29); Chloride 104 mEq/L (98-107); Glucose 133 mg/dL (70-105); Magnesium 2.3 mg/dL (1.6-2.6); Osmolality,Calculated 289 (280-300); Potassium 4.4 mEq/L (3.5-5.1); Sodium 138 mEq/L (136-145); Troponin I < 0.03 ng/mL (< 0.04); eGFR For African Americans > 60 (> 60); eGFR For Non-African Americans > 60 (> 60)
--- NOTE | 2018-11-02 19:51 | Emergency Department Note ---
Disposition Clinical Impression: Atrial fibrillation with rapid ventricular response, Difficulty breathing Chest pain Qualifiers: Chest pain type: unspecified Qualified Code(s): R07.9 - Chest pain, unspecified Disposition: Admitted As Inpatient Referrals: Sharmila Camara MD [Primary Care Provider] - Forms: ED Satisfaction Letter Time of Disposition: 20:33 General Adult HPI - General Chief complaint: ED Chest Pain Stated complaint: JEFF,Palpatations,Was in ICU For heart Time Seen by Provider: 11/02/18 18:59 Source: patient Mode of arrival: ambulatory Limitations: no limitations Nursing Notes Reviewed: Yes Vital Signs Reviewed: Yes - History of Present Illness HPI Narrative: 48M with PMHx of HTN and afib presents to the ER with complaints of chest pain and difficulty breathing. Patient states that he had a recent admission for V. tach and was sent to the ICU, where his V. tach converted to atrial fibrillation. 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 Today at approximately 1 PM he developed some chest pressure with palpitations and difficulty in breathing. He was trying to wait to see if it will go away on its on but it has not, therefore he presents to the emergency department again for further evaluation. EKG done in triage showed that the patient was in atrial fibrillation with rapid ventricular response. Patient has no other complaints at this time. He denies fever, recent illnesses, cough, abdominal pain, nausea and vomiting. He states he is only had a coffee and a Mountain Dew today and has not been taking the weight loss supplement that he was taking previously. Pain Scale: 0 - Related Data Home Medications Medication Instructions Recorded Confirmed DiphenhydraMINE [Benadryl] 25 mg PO HS PRN 08/21/18 11/02/18 Aspirin [Lo-Dose Aspirin EC] 81 mg PO DAILY 11/02/18 11/02/18 Fluticasone Propionate Nasal 50 mcg NS BID 11/02/18 11/02/18 [Flonase] Metoprolol [Lopressor] 25 mg PO BID 11/02/18 11/02/18 Oxycodone HCl/Acetaminophen 1 each PO Q6HR PRN 11/02/18 11/02/18 [Percocet 5-325 mg Tablet] Allergies Allergy/AdvReac Type Severity Reaction Status Date / Time Cowley Allergy Unknown Anaphylaxis Verified 11/02/18 19:17 All systems ED: reviewed and negative except as stated. Review of Systems: As Per HPI Constitutional: Denies: fever, chills, weakness Cardiovascular: Reports: chest pain, palpitations, dyspnea on exertion. Denies: edema Respiratory: Denies: cough, dyspnea, wheezes Gastrointestinal: Denies: abdominal pain, nausea, vomiting Musculoskeletal: Denies: back pain, neck pain Integumentary: Denies: rash Endocrine: Reports: fatigue Past Medical History - Past Medical History Attestation: Yes The following information was validated with the patient. Source: patient Medical history: Reports: atrial fibrillation, hypertension, other Psychiatric history: Reports: no psych history - Social History Smoking Status: Former smoker Smokeless Tobacco Status: No Alcohol use: Reports: none Drug use: Reports: none Physical Exam - General Limitations: no limitations General appearance: alert, in no apparent distress - Head Head exam: atraumatic, normocephalic - Eye Eye exam: Present: normal appearance, PERRL, EOMI - Chest Chest inspection: Present: normal inspection. Absent: tenderness, rash - Respiratory Respiratory exam: Present: normal lung sounds bilaterally. Absent: wheezes - Cardiovascular Cardiovascular exam: Present: tachycardia, irregular rhythm - Abdominal Exam Abdominal exam: Present: soft, Non-Tender. Absent: distention, guarding, rebound, rigidity - Extremities Exam Extremities exam: Present: normal inspection. Absent: tenderness, pedal edema - Neurological Exam Neurological exam: Present: alert, oriented X3 - Psychiatric Psychiatric exam: Present: normal affect, normal mood - Skin Skin exam: Present: warm, dry, intact Course Vital Signs Temperature 97.9 F 11/02/18 19:02 Pulse Rate 107 11/02/18 19:02 Respiratory Rate 17 11/02/18 19:02 Blood Pressure 157/97 11/02/18 19:02 O2 Sat by Pulse Oximetry 98 11/02/18 19:02 Temperature 97.9 F 11/02/18 19:02 Pulse Rate 107 11/02/18 19:02 Respiratory Rate 17 11/02/18 19:02 Blood Pressure 157/97 11/02/18 19:02 O2 Sat by Pulse Oximetry 98 11/02/18 19:02 Oxygen Delivery Oxygen Delivery Room Air Medical Decision Making - [facility] Narrative Medical decision making narrative: Patient presents in A. fib with RVR complaining of palpitations, chest pressure and shortness of breath. We will administer a dose of Lopressor and obtain cardiac labs and chest x-ray. Patient is currently stable at this time. Likely disposition for this patient given that he was recently in V. tach is admission. 2030 - patient's labs do not demonstrate any acute abnormalities. Chest x-ray by my interpretation looks unchanged from previous chest x-ray. EKG does not show any ST segment elevation or other signs of ischemia. Patient's heart rate had decreased into the 80s but was still in atrial fibrillation. Seeing as he was on amiodarone for several days prior to spontaneous conversion for his A. fib we will start anticoagulation now and admit him to the hospitalist with cardiology consult. Dr. Bales has accepted the patient for admission at this time. - Medical Records Medical records reviewed: Yes I reviewed the patient's medical records. - Lab Data Lab results reviewed: Yes I reviewed the patient's lab results. Result diagrams: 11/02/18 19:11 11/02/18 19:11 Lab Results 11/02/18 11/02/18 11/02/18 Range/Units 19:11 19:11 19:11 WBC 12.5 H (4.3-11.1) K/mcL RBC 5.25 (4.19-5.50) M/mcL Hgb 15.0 (12.9-16.9) g/dL Hct 46.2 (37.5-50.1) % MCV 88.0 (83.0-100.0) fL MCH 28.6 (28.0-33.3) pg MCHC 32.5 (31.6-35.5) g/dL RDW 13.3 (11.5-14.5) % Plt Count 282 (140-400) K/mcL MPV 9.9 (9.4-12.4) fL Immature Gran % 0.6 (0-4) % Seg Neutrophils % 49.0 % Lymphocytes % 37.3 % Monocytes % 10.2 % Eosinophils % 2.4 % Basophils % 0.5 % Neutrophils # 6.1 (1.6-8.9) K/mcL Lymphocytes # 4.7 H (0.6-4.6) K/mcL Monocytes # 1.3 (0.0-1.3) K/mcL Eosinophils # 0.3 (0.0-0.6) K/mcL Basophils # 0.1 (0.0-0.2) K/mcL PT 11.3 (9.4-12.1) Seconds INR 1.0 Sodium 138 (136-145) mEq/L Potassium 4.4 (3.5-5.1) mEq/L Chloride 104 (98-107) mEq/L Carbon Dioxide 28 (23-29) mEq/L BUN 15 (6-20) mg/dL Creatinine 0.88 (0.70-1.30) mg/dL Est GFR ( Amer) > 60 (> 60) Est GFR (Non-Af Amer) > 60 (> 60) BUN/Creatinine Ratio 17 (6-26) Glucose 133 H (70-105) mg/dL Calculated Osmolality 289 (280-300) Calcium 9.7 (8.6-10.3) mg/dL Magnesium 2.3 (1.6-2.6) mg/dL Troponin I < 0.03 (< 0.04) ng/mL TSH 1.539 (0.340-5.600) mcIU/mL - Radiology Data Radiology results reviewed: Yes I reviewed the patient's radiology results. - EKG Data EKG #1 EKG attestation: Yes I reviewed and interpreted this EKG. EKG results narrative: EKG obtained at 1857 on 11/02/2018 Heart rate 1 70 bpm, QRS duration 96, QT 308, QTC 377 Atrial fibrillation with RVR. No signs of ST segment elevation or depression. No old EKG for comparison this time. Attestation Statement - Attestation Attestation: Wendy Ortega D.O., examined this patient and my medical decision-making was reviewed with the Resident Physician. I agree with the documented findings, disposition and treatment plan as described except to the extent set forth below.
[2018-11-02 20:02] LABS: Thyroid Stimulating Hormone 1.539 mcIU/mL (0.340-5.600)
[2018-11-02] MEDS ORDERED: *HR* Heparin 5,000 UNIT/ML VIAL IVP ONE (20:28)
[2018-11-02] MEDS ORDERED: *HR* Heparin 5,000 UNIT/ML VIAL IVP PRN ×2 (20:28)
--- NOTE | 2018-11-02 20:46 | Internal Med History&Physical ---
<Delisa Kearns - Last Filed: 11/02/18 23:06> Date of Encounter: 11/02/18 Time of Encounter: 20:45 Internal Medicine - H&P: HPI Chief complaint: Chest pain Admitted From: Emergency Dept Plans for Post Hospital Care: Home History of present illness: Mr. Abel is a 48 year old male with a past medical history of atrial fibrillation, hypertension, LUCINDA who presented to [facility] complaining of palpitations. Patient reported that this morning from 10 AM he noted palpitations are quickly resolved and then again around noon the returned but lasted longer than the previous. Additionally he felt some chest pressure and neck tightness. He had dizziness, lightheadedness, shortness of breath, stomach cramping. He denied wheezing, syncope, fever, chills, nausea, vomiting, diarrhea, recent illness. He was worried about the palpitations and decided to be evaluated in ED since he was recently admitted in July 2018 with V-tach. The patient's is at the bedside. The patient had apparently not been taking his medications including his metoprolol and aspirin regularly and for the past 3 days had not taken it at all. Today he had 2 cups of coffee and a Mountain Dew. On Thursday his stated he drank 6 Mountain Dew's. He had a sleep study test a week ago after which he noted he felt significantly better rested and more energy. However, he does not have a CPAP machine yet and he has felt more fatigue and his stated that he has been snoring very loudly in his sleep. His noted that he slept terribly last night due to snoring. He is to get his CPAP machine any time through delivery. He follows with the student worker Dr. Chowdary after last admission. He denied taking any weight loss supplements. He denies tobacco use, alcohol, drug use. His father had prostate cancer. He is a full code. Of note, he was recently admitted on 08/22/2018 for V-tach and atrial fibrillation with RVR for which she was subsequently on an amiodarone and heparin drip. Etiology was due to phentermine (weight loss supplements) and energy drinks (2-3 daily) for weight loss. He was seen by the student worker Dr. Chowdary whom placed him on metoprolol and aspirin for anticoagulation due to CHADS-VASc = 1. During that admission he converted to NSR and the patient had a left heart catheterization that showed mild coronary artery disease and normal ejection fraction . TTE: LVEF 60-65%, indeterminate diastolic function. Initial vitals in the ED were temperature 97.9 decreased Fahrenheit, HR 107, RR 17, BP 157/97, SpO2 98% on room air. WBC 12.5, potassium 4.4, magnesium 2.3, troponin <0.03, TSH 1.5. -Chest x-ray showed no acute cardiopulmonary process. -EKG: HR 117, atrial fibrillation, no ST or T wave changes indicating ischemia. -In the ED the patient was started on a heparin drip and was given a dose of Lopressor. Cardiology consult was ordered in the ED. Past Med Surg Social Fam HX - Past Medical History Attestation: Yes The following information was validated with the patient. Source: patient Medical history: atrial fibrillation, hypertension, other Additional medical history: sleep apnea Psychiatric history: no psych history - Past Surgical History Surgical History: orthopedic, other Additional surgical history: bilateral knee replacement, left bicap - Social History Smoking Status: Former smoker Smokeless Tobacco Status: No Alcohol use: none Drug use: none - Family History Father Living Status: Still Living Hx Family Cardiac Disorders: Yes (HTN) Hx Family Cancer: Yes (Prostate cancer) Mother Living Status: Still Living Hx Family Cardiac Disorders: Yes (HTN) Internal Medicine - H&P: Meds DiphenhydraMINE [Benadryl] 25 mg PO HS PRN 08/21/18 [History] Aspirin [Lo-Dose Aspirin EC] 81 mg PO DAILY 11/02/18 [History] Fluticasone Propionate Nasal [Flonase] 50 mcg NS BID 11/02/18 [History] Metoprolol [Lopressor] 25 mg PO BID 11/02/18 [History] Oxycodone HCl/Acetaminophen [Percocet 5-325 mg Tablet] 1 each PO Q6HR PRN [History] Allergy/AdvReac Type Severity Reaction Status Date / Time Wade Allergy Unknown Anaphylaxis Verified 11/02/18 19:17 All Systems PM: A 10-system review of systems was performed and is negative for pertinent findings except as documented above in the HPI. - Constitutional Constitutional: fatigue, no chills, no fever(s), no falls - EENT Eyes: no blurry vision, no change in vision - Cardiovascular Cardiovascular ROS IM: chest pain, dyspnea, irregular heart rhythm, lightheadedness, palpitations, no diaphoresis, no syncope - Respiratory Respiratory: dyspnea, no cough, no wheezing, no change in phlegm color - Gastrointestinal Gastrointestinal: cramping, no diarrhea, no nausea, no vomiting - Genitourinary Genitourinary ROS male: no dysuria, no urinary frequency - Musculoskeletal Musculoskeletal ROS IM: no muscle cramps, no muscle weakness - Integumentary Integumentary IM: no rash, no skin ulcer - Neurological Neurological ROS: dizziness, no abnormal speech, no focal weakness, no headache(s), no loss of vision - Hematologic/Lymphatic Hematologic/Lymphatic: no easy bleeding - Constitutional Vitals: Temp Pulse Resp BP Pulse Ox 97.9 F 107 17 157/97 98 11/02/18 19:02 11/02/18 19:02 11/02/18 19:02 11/02/18 19:02 11/02/18 19:02 Exam: Gen.: Vitals noted. No acute distress. AAOx3 HEENT: oropharynx clear, Normocephalic, atraumatic Neck: Supple. No adenopathy. Cardiac: tachycardic, irregularly irregular, no murmur, +S1/S2 Pulmonary: CTA bilaterally, no wheezes, rales or rhonchi, equal chest expansion Abdomen: soft, nontender, Bowel sounds noted, no guarding MSK: ROM intact, no joint swelling noted Extremities: no BLE edema, nontender calf, no cyanosis or clubbing Neuro: A&Ox3, moves all extremities, no focal deficits Psych: Appropriate mood and behavior Internal Med - H&P Results - Labs CBC & Chem 7: 11/02/18 19:11 11/02/18 19:11 Labs: Short CBC 11/02/18 Range/Units 19:11 WBC 12.5 H (4.3-11.1) K/mcL Hgb 15.0 (12.9-16.9) g/dL Hct 46.2 (37.5-50.1) % Plt Count 282 (140-400) K/mcL Neutrophils # 6.1 (1.6-8.9) K/mcL BMP 09/03/19 19:11 Sodium 138 Potassium 4.4 Chloride 104 Carbon Dioxide 28 BUN 15 Creatinine 0.88 Glucose 133 H Calcium 9.7 Cardiac Enzymes 11/02/18 Range/Units 19:11 Troponin I < 0.03 (< 0.04) ng/mL - Impressions ITS Impressions Chest X-Ray 11/02/18 19:59 IMPRESSION: No acute cardiopulmonary disease. D/ / Elder Leal MD / Elder Leal MD Interpreting Provider: Elder Leal MD - Assessment and Plan (1) Atrial fibrillation with RVR Current Visit: Yes Status: Acute Assessment and plan: Patient with history of atrial fibrillation now presenting with a fib with RVR. Suspect that this is likely multifactorial secondary to the patient reporting noncompliance with his metoprolol and aspirin, having not taken it in the last 3 days and prior to that would take intermittently. Additionally, he still has high caffeine intake with drinking 2 cups of coffee and a Mountain Dew today. reported patient drink 6 Mountain Dew's on Thursday. Patient also has obstructive sleep apnea but is awaiting his CPAP machine to be delivered. During last admission for atrial fibrillation in 07/2018 it was likely secondary to the weight loss supplements phentermine and energy drinks (2-3daily). He no longer takes those weight loss supplements and does not drink energy drinks. -Secondary to medication noncompliance, untreated LUCINDA, high caffeine intake -Risk factors history a fib, htn, LUCINDA, caffeine intake, morbid obesity -potassium 4.4, magnesium 2.3, troponin <0.03, TSH 1.5 -Chest x-ray showed no acute cardiopulmonary process. -EKG: HR 117, atrial fibrillation, no ST or T wave changes indicating ischemia. -LHC that showed mild coronary artery disease and normal ejection fraction -TTE: LVEF 60-65%, indeterminate diastolic function. -CHADSVASC: 1 (HTN) plan: -patient currently on heparin drip -continue patient home metoprolol 25 mg b.i.d. -PRN metoprolol 5 mg IV ordered -repeat EKG in a.m. -trend troponin -aspirin ordered -cardiac consult ordered by ED but not called -CPAP machine ordered for bedtime -continue cardiac telemetry (2) Chest pain Current Visit: Yes Status: Acute Assessment and plan: Patient with chest discomfort retrosternal and neck tightness with palpitations. He described as pressure like. Lasted a few minutes. -Likely secondary to a fib with RVR. Troponin and EKG do not demonstrate findings concerning for ischemia. -troponin <0.03, TSH 1.5 -Chest x-ray showed no acute cardiopulmonary process. -EKG: HR 117, atrial fibrillation, no ST or T wave changes indicating ischemia. -[facility] 07/2018 that showed mild coronary artery disease and normal ejection fractio n plan: -currently on heparin drip -trend troponin -repeat EKG at 6:30 AM -continue cardiac telemetry Qualifiers: Chest pain type: unspecified Qualified Code(s): R07.9 - Chest pain, unspecified (3) Leukocytosis Current Visit: No Status: Acute Assessment and plan: Patient with leukocytosis WBC 12.5 on admission. He is afebrile and hemodynam ically stable. There is no obvious source of infection. Not suspect that he has an infection but leukocytosis may be due to a fib with RVR. -Will not give antibiotics at this time but will continue to monitor. Qualifiers: Leukocytosis type: unspecified Qualified Code(s): D72.829 - Elevated white blood cell count, unspecified (4) Sleep apnea Current Visit: No Status: Chronic Assessment and plan: Patient with obstructive sleep apnea. He was recently diagnosed and is supposed to get a CPAP machine delivered however has not received it yet. -Will order for CPAP machine at bedtime. Qualifiers: Sleep apnea type: obstructive Qualified Code(s): G47.33 - Obstructive sleep apnea (adult) (pediatric) (5) Morbid obesity with BMI of 40.0-44.9, adult Current Visit: No Status: Chronic Assessment and plan: Patient is morbidly obese but is working on weight loss. (6) DVT prophylaxis Current Visit: No Status: Acute Assessment and plan: on heparin drip (7) Non compliance w medication regimen Current Visit: Yes Status: Acute Assessment and plan: Patient reporting noncompliance with his metoprolol and aspirin, having not taken it in the last 3 days and prior to that would take intermittently. After discussion on the importance of taking his medications daily. - Time Spent With Patient Total time spent is greater than 50% in coordination of care (as documented) at patient's floor/unit and/or counseling patient: <Yobani Bales - Last Filed: 11/03/18 05:43> Date of Encounter: 11/02/18 Internal Medicine - H&P: HPI History of present illness: Mr. Abel is a 48 year old male All Systems PM: A 10-system review of systems was performed and is negative for pertinent findings except as documented above in the HPI. - Constitutional Vitals: Temp Pulse Resp BP Pulse Ox 97.6 F 81 17 135/82 95 11/03/18 03:46 11/03/18 03:46 11/03/18 03:46 11/03/18 03:46 11/03/18 03:46 Internal Med - H&P Results - Labs CBC & Chem 7: 11/02/18 19:11 11/02/18 19:11 Labs: Short CBC 11/02/18 Range/Units 19:11 WBC 12.5 H (4.3-11.1) K/mcL Hgb 15.0 (12.9-16.9) g/dL Hct 46.2 (37.5-50.1) % Plt Count 282 (140-400) K/mcL Neutrophils # 6.1 (1.6-8.9) K/mcL BMP 11/02/18 19:11 Sodium 138 Potassium 4.4 Chloride 104 Carbon Dioxide 28 BUN 15 Creatinine 0.88 Glucose 133 H Calcium 9.7 Cardiac Enzymes 11/02/18 11/03/18 Range/Units 19:11 01:08 Troponin I < 0.03 < 0.03 (< 0.04) ng/mL - Impressions ITS Impressions Chest X-Ray 11/02/18 19:59 IMPRESSION: No acute cardiopulmonary disease. D/ / Elder Leal MD / Elder Leal MD Interpreting Provider: Elder Leal MD - Assessment and Plan (1) Atrial fibrillation with RVR Current Visit: Yes Status: Acute (2) DVT prophylaxis Current Visit: No Status: Acute (3) Leukocytosis Current Visit: No Status: Acute Qualifiers: Leukocytosis type: unspecified Qualified Code(s): D72.829 - Elevated white blood cell count, unspecified (4) Sleep apnea Current Visit: No Status: Chronic Qualifiers: Sleep apnea type: obstructive Qualified Code(s): G47.33 - Obstructive sleep apnea (adult) (pediatric) (5) Morbid obesity with BMI of 40.0-44.9, adult Current Visit: No Status: Chronic (6) Chest pain Current Visit: Yes Status: Acute Qualifiers: Chest pain type: unspecified Qualified Code(s): R07.9 - Chest pain, unspecified (7) Non compliance w medication regimen Current Visit: Yes Status: Acute - Time Spent With Patient Total time spent is greater than 50% in coordination of care (as documented) at patient's floor/unit and/or counseling patient: - Attending Attestation I saw and evaluated the patient. I reviewed the residents note, performed my own physical examination and agree with findings and plan as documented in the residents note. Patient seen and examined on 11/03/18. Patient presented with atrial fibrillation with RVR. Now on heparin drip. IV Lopressor seems to help keep it rate controlled. Patient not compliant with his medicines, also has history of obstructive sleep apnea. We will have cardiology see the patient in the morning, follow up recommendations. Patient currently stable, no complaints.
[2018-11-02] MEDS ORDERED: Ondansetron ODT 4 MG TAB.RAPDIS SL PRN (21:42)
[2018-11-02] MEDS ORDERED: Naloxone 0.4 MG/ML INJ IVP PRN (21:42)
[2018-11-02] MEDS: Heparin 25,000 UNIT/250 ML D5W 25,000 UNIT/250 ML IV.SOLN IVC SCH (22:01)
[2018-11-02] MEDS ORDERED: *HR* Metoprolol 5 MG/5 ML VIAL IVP PRN (22:01)
[2018-11-03 06:46] LABS: Basophils # 0.1 K/mcL (0.0-0.2); Basophils % 0.7 %; Eosinophils # 0.3 K/mcL (0.0-0.6); Eosinophils % 2.5 %; Hematocrit 47.4 % (37.5-50.1); Hemoglobin 15.7 g/dL (12.9-16.9); Immature Granulocytes % 0.6 % (0-4); Lymphocytes # 5.7 K/mcL (0.6-4.6); Lymphocytes % 47.1 %; Mean Corpuscular HGB Conc 33.1 g/dL (31.6-35.5); Mean Corpuscular Hemoglobin 29.2 pg (28.0-33.3); Mean Corpuscular Volume 88.1 fL (83.0-100.0); Mean Platelet Volume 9.7 fL (9.4-12.4); Monocytes # 1.1 K/mcL (0.0-1.3); Monocytes % 9.4 %; Neutrophils # 4.8 K/mcL (1.6-8.9); Nucleated Red Blood Cells 0.2 /100 WBC (0); Platelet Count 256 K/mcL (140-400); Red Blood Count 5.38 M/mcL (4.19-5.50); Red Cell Distribution Width 13.4 % (11.5-14.5); Segmented Neutrophils % 39.7 %; White Blood Count 12.1 K/mcL (4.3-11.1)
[2018-11-03] MEDS ORDERED: Aspirin Enteric Coated 81 MG Tablet PO SCH (09:00)
[2018-11-03] MEDS: Heparin 25,000 UNIT/250 ML D5W 25,000 UNIT/250 ML IV.SOLN IVC SCH (10:03)
--- NOTE | 2018-11-03 10:32 | Cardiology Consult Note ---
<Maki Levy Galo - Last Filed: 11/03/18 10:50> Date of Encounter: 11/03/18 Time of Encounter: 10:20 Assessment and Plan (1) PAF (paroxysmal atrial fibrillation) Current Visit: Yes Status: Acute PAF likely in the setting of medication non-compliance. Now in NSR s/p 2 doses of lopressor. No significant electrolyte abnormality. Completed outpatient sleep study--awaiting delivery of home CPAP. Continue Lopressor 25 mg BID as outpatient. CHA2Ds Vasc=1, continue aspirin for AC. Follow-up with Cardiology as scheduled as outpatient. Discussion w patient/family: The assessment and plan as outlined above was discussed with the patient and/or family members who expressed understanding and agreement. All questions were answered. Thank you for involving us in the care of your patient. Please call with any questions. The patient will be discussed and reviewed with Dr. Rolon; changes to be made accordingly. History of Present Illness Consult date: 11/03/18 Requesting physician: Delisa Kearns Consult reason: Afib Chief complaint: Palpitations History of present illness: Mr. Abel is a 48 year old male with PMHx significant of LUCINDA and PAF who presented to the ED with complaints of palpitations. He reports palpitations started yesterday morning and persisted throughout the day which prompted ED evaluation. Associated symptoms included dizziness. He was given x2 doses of lopressor as inpatient and has since converted to NSR. Of note, he reports not taking his lopressor at home as directed. Additionally, he reports he completed outpatient sleep study last week and is awaiting delivery of CPAP at home. Recent admission July 2018 was found to have outflow tract VT in the setting of excessive intake of energy drinks and phentermine for weight loss--no recurrence since he has stopped. Recent CV testing: TTE 08/21/18: LVEF 65%, mild cLVH, no significant valvular dysfunction LHC 08/22/18: EF 65%, mild non-obstructive CAD. Past Med Surg Social Fam HX - Past Medical History Attestation: Yes The following information was validated with the patient. Source: patient Medical history: atrial fibrillation, hypertension, other Additional medical history: sleep apnea Psychiatric history: no psych history - Past Surgical History Surgical History: orthopedic, other Additional surgical history: bilat. TKR - Social History Smoking Status: Former smoker Smokeless Tobacco Status: No Alcohol use: none Drug use: none - Family History Father Living Status: Still Living Hx Family Cardiac Disorders: Yes (HTN) Hx Family Cancer: Yes (Prostate cancer) Mother Living Status: Still Living Hx Family Cardiac Disorders: Yes (HTN) Medications and Allergies DiphenhydraMINE [Benadryl] 25 mg PO HS PRN 08/21/18 [History] Aspirin [Lo-Dose Aspirin EC] 81 mg PO DAILY 11/02/18 [History] Fluticasone Propionate Nasal [Flonase] 50 mcg NS BID 11/02/18 [History] Metoprolol [Lopressor] 25 mg PO BID 11/02/18 [History] Oxycodone HCl/Acetaminophen [Percocet 5-325 mg Tablet] 1 each PO Q6HR PRN 11/02/18 [History] Allergy/AdvReac Type Severity Reaction Status Date / Time [place] Allergy Unknown Anaphylaxis Verified 11/02/18 19:17 All Systems Review: The remainder of the systems were reviewed and are negative - Cardiovascular Cardiovascular: as per HPI Physical Examination Vital Signs, Last 4 Hours Temp Pulse Resp BP Pulse Ox 11/03/18 07:19 96 11/03/18 06:36 98.4 F 80 18 124/82 96 General: Conversant, No Apparent Distress HEENT: Atraumatic, Normocephaly, Mucus Membranes Moist Neck: No JVD, Normal carotid pulses Cardiac: Reg Rate and Rhythm, Normal S1 and S2, No Murmur Lungs: Normal Breath Sounds, No Wheeze, Rales, Rhonchi Neuro: Alert and responsive, No focal deficits noted Abdomen: Soft, Non-Tender Skin: No rashes noted on visualized skin Musculoskeletal: No Chest Wall Tenderness Extremities: No Clubbing, No Cyanosis, No Edema, Normal Pulses Results 11/03/18 06:35 11/02/18 19:11 Lab Results 11/02/18 11/02/18 11/02/18 19:11 19:11 19:11 WBC 12.5 H Hgb 15.0 Hct 46.2 Plt Count 282 INR 1.0 Sodium 138 Potassium 4.4 Chloride 104 Carbon Dioxide 28 BUN 15 Creatinine 0.88 Glucose 133 H Calcium 9.7 Magnesium 2.3 Troponin I < 0.03 TSH 1.539 11/03/18 11/03/18 11/03/18 01:08 06:35 06:35 WBC 12.1 H Hgb 15.7 Hct 47.4 Plt Count 256 INR Sodium Potassium Chloride Carbon Dioxide BUN Creatinine Glucose Calcium Magnesium Troponin I < 0.03 < 0.03 TSH Active Medications Aspirin (Aspirin Ec) [address] [facility] Stop: 05/05/19 09:01 Last Admin: 11/03/18 07:14 Dose: 81 mg Documented by: Heparin Sodium (Porcine) (Heparin) 9,000 unit IVP Q6HR PRN PRN Reason: SEE COMMENTS Stop: 05/04/19 20:29 Heparin Sodium (Porcine) (Heparin) 4,500 unit IVP Q6H PRN PRN Reason: SEE COMMENTS Stop: 05/04/19 20:29 Heparin Sodium/Dextrose (Heparin 25,000 Unit/250 Ml D5w) 25,000 unit in 250 mls @ 20.321 mls/hr IVC .[id number] [facility]; Protocol Stop: 05/04/19 20:46 Last Admin: 11/03/18 10:03 Dose: 14 unit/kg/hr, 20.3 mls/hr Documented by: Metoprolol Tartrate (Lopressor) [address] [facility] Stop: 05/05/19 09:01 Last Admin: 11/03/18 07:14 Dose: 25 mg Documented by: Metoprolol Tartrate (Lopressor) 5 mg IVP Q6HR PRN PRN Reason: Tachyarrhythmias Stop: 05/04/19 22:02 Naloxone HCl (Narcan) 0.4 mg IVP Q2MPRN PRN PRN Reason: SEE COMMENTS Stop: 05/04/19 21:43 Ondansetron HCl (Zofran Odt) 4 mg SL Q8H PRN PRN Reason: Nausea And Vomiting Stop: 05/04/19 21:43 - Imaging and Cardiology Echo: report reviewed Cardiac cath: report reviewed - EKG Interpretation EKG results cardiology: personally reviewed Consult Discharge Plan - Plan Referrals: Sharmila Camara MD [Primary Care Provider] - CHADS2-VASC Score - Score Age: Less than 65 Sex: Male CHF History: No Hypertension history: Yes Stroke/TIA/Thromboembolism Hx: No Vascular disease history: No Diabetes history: No Score: 1 HAS-BLED Score - Score Medication usage predisposing to bleeding: Antiplatelet agents, NSAIDs, Anticoagulants Score: 1 <Raoul Rolon - Last Filed: 11/03/18 11:17> Date of Encounter: 11/03/18 - Attending Attestation I have personally performed a face to face evaluation on this patient. I have reviewed and agree with the care plan. History and Exam by me shows: 48 YOM with LUCINDA and recent dx of PAF stopped BB with resulting RVR. Now after BB resumed back in NSR. Ischemic work up unremarkable. F/U with Cardiology as an OP Assessment and Plan Discussion w patient/family: The assessment and plan as outlined above was discussed with the patient and/or family members who expressed understanding and agreement. All questions were an swered. Thank you for involving us in the care of your patient. Please call with any questions. History of Present Illness History of present illness: Mr. Abel is a 48 year old male All Systems Review: The remainder of the systems were reviewed and are negative Physical Examination Vital Signs, Last 4 Hours Pulse Ox 11/03/18 07:19 96 Results 11/03/18 06:35 11/02/18 19:11 Lab Results 11/02/18 11/02/18 11/02/18 19:11 19:11 19:11 WBC 12.5 H Hgb 15.0 Hct 46.2 Plt Count 282 INR 1.0 Sodium 138 Potassium 4.4 Chloride 104 Carbon Dioxide 28 BUN 15 Creatinine 0.88 Glucose 133 H Calcium 9.7 Magnesium 2.3 Troponin I < 0.03 TSH 1.539 11/03/18 11/03/18 11/03/18 01:08 06:35 06:35 WBC 12.1 H Hgb 15.7 Hct 47.4 Plt Count 256 INR Sodium Potassium Chloride Carbon Dioxide BUN Creatinine Glucose Calcium Magnesium Troponin I < 0.03 < 0.03 TSH
--- NOTE | 2018-11-03 10:34 | Internal Med Progress Note ---
Hospitalist Progress Note - Encounter Date of Encounter: 11/03/18 Time of Encounter: 08:00 - Subjective Interval History: No acute events overnight. Patient currently denies palpitations, chst pain, SOB and lightheadedness. - Exam Vitals: Temp Pulse Resp BP Pulse Ox 36.9 C 80 18 124/82 96 11/03/18 06:36 11/03/18 06:36 11/03/18 06:36 11/03/18 06:36 11/03/18 07:19 Exam: GENERAL: Not in distress. Alert and Oriented HEENT: EOMI, PERRLA MOUTH: Good oral hygiene NECK:No JVD, No lymph nodes. CHEST AND LUNGS: Normal breath sounds, no wheezes or crackles HEART: S1 and S2 normal, no murmurs ABDOMEN: Soft, nontender, no organomegaly SKIN: Normal color, no rahses, no lesions EXTREMITIES: No deformity, no edema, no tenderness, no joint swelling or clubbing NEUROLOGICAL: Normal cognition, normal motor and sensory exam. - Assessment and Plan (1) Atrial fibrillation with RVR Current Visit: Yes Status: Acute Assessment and Plan: Patient in sinus rhythm at time of encounter. He denies palpitations. Pulse rate in 80s. Still on Cardizem drip Awaiting cardio evaluation (2) Leukocytosis Current Visit: No Status: Acute Assessment and Plan: WBC 12.1. Trending down. Curently has no signs and symptoms of a possible infection. Will monitor. (3) Sleep apnea Current Visit: No Status: Chronic Assessment and Plan: Patient with obstructive sleep apnea. He was recently diagnosed and is supposed to get a CPAP machine delivered however has not received it yet. CPAP at bedtime ordered. (4) Morbid obesity with BMI of 40.0-44.9, adult Current Visit: No Status: Chronic Assessment and Plan: Patient counseled on weight loss options. (5) Chest pain Current Visit: Yes Status: Acute Assessment and Plan: Betty denies chest pain this morning. Troponin <0.03 EKG on admission without ischemic changes. Will monitor. (6) Non compliance w medication regimen Current Visit: Yes Status: Acute Assessment and Plan: Patient reported noncompliance with his metoprolol and aspirin. Has been counseled and now states that he will adhere to his treatment. (7) DVT prophylaxis Current Visit: No Status: Acute Assessment and Plan: on heparin drip - Time Spent with Patient Total time spent is greater than 50% in coordination of care (as documented) at patient's floor/unit and/or counseling patient: Internal Medicine: Result - Labs CBC & Chem 7: 11/03/18 06:35 11/02/18 19:11 Labs: Short CBC 11/02/18 11/03/18 Range/Units 19:11 06:35 WBC 12.5 H 12.1 H (4.3-11.1) K/mcL Hgb 15.0 15.7 (12.9-16.9) g/dL Hct 46.2 47.4 (37.5-50.1) % Plt Count 282 256 (140-400) K/mcL Neutrophils # 6.1 4.8 (1.6-8.9) K/mcL BMP 11/02/18 19:11 Sodium 138 Potassium 4.4 Chloride 104 Carbon Dioxide 28 BUN 15 Creatinine 0.88 Glucose 133 H Calcium 9.7 Cardiac Enzymes 11/02/18 11/03/18 11/03/18 Range/Units 19:11 01:08 06:35 Troponin I < 0.03 < 0.03 < 0.03 (< 0.04) ng/mL - ABG Interpretation ABG results: PT/INR, D-dimer PT 11.3 Seconds (9.4-12.1) 11/02/18 19:11 - Impressions Impressions Chest X-Ray 11/02/18 19:59 IMPRESSION: No acute cardiopulmonary disease. D/ / Elder Leal MD / Elder Leal MD Interpreting Provider: Elder Leal MD Consult Discharge Plan - Plan Referrals: Sharmila Camara MD [Primary Care Provider] - (2) Leukocytosis Qualifiers: Leukocytosis type: unspecified Qualified Code(s): D72.829 - Elevated white blood cell count, unspecified (3) Sleep apnea Qualifiers: Sleep apnea type: obstructive Qualified Code(s): G47.33 - Obstructive sleep apnea (adult) (pediatric) (5) Chest pain Qualifiers: Chest pain type: unspecified Qualified Code(s): R07.9 - Chest pain, unspecified
--- NOTE | 2018-11-03 11:15 | Electrocardiograph Report ---
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
[2018-11-03 15:59] VITALS: BP 137/91
--- NOTE | 2018-11-03 16:25 | Discharge Summary ---
- NOTES TO OUTPATIENT PROVIDER Notes to Outpatient Provider: Patient to follow up with cardiology as outpatient for Paroxysmal afib Date of Encounter: 11/03/18 Time of Encounter: 16:22 - Discharge Diagnosis (1) Atrial fibrillation with RVR Priority: Primary Status: Acute (2) Leukocytosis Priority: Secondary Status: Acute Qualifiers: Leukocytosis type: unspecified Qualified Code(s): D72.829 - Elevated white blood cell count, unspecified (3) Sleep apnea Priority: Secondary Status: Chronic Qualifiers: Sleep apnea type: obstructive Qualified Code(s): G47.33 - Obstructive sleep apnea (adult) (pediatric) (4) Morbid obesity with BMI of 40.0-44.9, adult Priority: Secondary Status: Chronic (5) Chest pain Priority: Secondary Status: Acute Qualifiers: Chest pain type: unspecified Qualified Code(s): R07.9 - Chest pain, unspecified (6) Non compliance w medication regimen Priority: Secondary Status: Acute (7) DVT prophylaxis Priority: Secondary Status: Acute Hospital course: Mr. Abel is a 48 year old male with a PMHx of HTN and Afib. he presented with palpitations and SOB. Patient was found to be in Afib with RVR. Patient admitted that he had not been fully compliant with his rate control meds and had been ingesting highly caffeinated drinks in days prior to admission. Patient converted to NSR after two doses of BB. Ischemic workup was unremarkable. Patient to f/u with cardiology as outpatient. Discharge discussed with: patient, family, nurse Time spent discussing smoking cessation with patient: more than 10 minutes - Time Spent with Patient Total time spent providing and/or coordinating discharge services: Time spent: Greater than 30 minutes (35 minutes) - Discharge Medications Prescriptions: Continued DiphenhydraMINE [Benadryl] 25 mg PO HS PRN PRN Reason: Insomnia Oxycodone HCl/Acetaminophen [Percocet 5-325 mg Tablet] 1 each PO Q6HR PRN PRN Reason: Pain Aspirin [Lo-Dose Aspirin EC] 81 mg PO DAILY Fluticasone Propionate Nasal [Flonase] 50 mcg NS BID Metoprolol [Lopressor] 25 mg PO BID Home Medications: DiphenhydraMINE [Benadryl] 25 mg PO HS PRN 08/21/18 [History] Aspirin [Lo-Dose Aspirin EC] 81 mg PO DAILY 11/02/18 [History] Fluticasone Propionate Nasal [Flonase] 50 mcg NS BID 11/02/18 [History] Metoprolol [Lopressor] 25 mg PO BID 11/02/18 [History] Oxycodone HCl/Acetaminophen [Percocet 5-325 mg Tablet] 1 each PO Q6HR PRN 11/02/18 [History] Allergies/Adverse Reactions: Allergy/AdvReac Type Severity Reaction Status Date / Time [place] Allergy Unknown Anaphylaxis Verified 11/02/18 19:17 Date of admission: 11/02/18 20:55 Primary care physician: Sharmila Camara MD Consults: 11/02/18 20:29 Consult to Cardiology [CONS] Stat Comment: Consulting Provider: Cardiology [facility] Reason for Consult: afib RVR with Hx of Vtach Call Completed: No - Constitutional Vitals: Temp Pulse Resp BP Pulse Ox 36.7 C 70 18 137/91 97 11/03/18 15:58 11/03/18 15:58 11/03/18 15:58 11/03/18 15:58 11/03/18 15:58 Exam: GENERAL: Not in distress. Alert and Oriented HEENT: EOMI, PERRLA MOUTH: Moist oral mucosa NECK:No JVD, No lymph nodes. CHEST AND LUNGS: Normal breath sounds, no wheezes or crackles HEART: S1 and S2 normal. In NSR. No murmurs ABDOMEN: Soft, nontender, no organomegaly SKIN: Normal color, no rahses, no lesions EXTREMITIES: No deformity, no edema, no tenderness, no joint swelling or clubbing NEUROLOGICAL: Normal cognition, normal motor and sensory exam. - Patient Status Disposition: Home, Self-Care Condition: Good Functional capacity at discharge: independent ambulation Overall status at discharge: patient is back to baseline - Discharge Instructions Follow Up With: Sharmila Camara MD [Primary Care Provider] - 11/11/18 10:00 am (Please follow up as schedule..) - Diet and Activity Activity: resume usual activities as tolerated Diet: low salt diet
== END 2018-11-03 17:33 | disposition home or self-care (01) ==
LOC: EMEROOARM 18:29 → 2ANU 18:29 → SUATTDRO 20:55 → 2ANU 22:35
PROVIDERS: ADMIT Family Medicine; ATTEND Internal Medicine

== ENCOUNTER 2020-09-25 09:53 | Inpatient (IN) ==
[2020-09-25] MEDS ORDERED: Ipratropium/Albuterol Neb 3 ML IH ONE (11:39)
[2020-09-25 12:00] LABS: Hematocrit 44.3 % (37.5-50.1); Hemoglobin 14.4 g/dL (12.9-16.9); Mean Corpuscular HGB Conc 32.5 g/dL (31.6-35.5); Mean Corpuscular Hemoglobin 28.5 pg (28.0-33.3); Mean Corpuscular Volume 87.5 fL (83.0-100.0); Mean Platelet Volume 9.9 fL (9.4-12.4); Platelet Count 208 K/mcL (140-400); Red Blood Count 5.06 M/mcL (4.19-5.50); Red Cell Distribution Width 13.6 % (11.5-14.5); White Blood Count 13.6 K/mcL (4.3-11.1)
[2020-09-25 12:27] LABS: Alanine Aminotransferase 59 Units/L (7-52); Albumin 3.8 g/dL (3.5-5.7); Albumin/Globulin Ratio 1.2 (1.1-2.2); Alkaline Phosphatase 43 Units/L (34-104); Aspartate Amino Transferase 58 Units/L (13-39); BUN/Creatinine Ratio 16 (6-26); Bilirubin,Direct 0.2 mg/dL (0.0-0.2); Bilirubin,Indirect 0.5 mg/dL (0.0-1.0); Bilirubin,Total 0.7 mg/dL (0.3-1.0); Blood Urea Nitrogen 13 mg/dL (6-20); Calcium 8.7 mg/dL (8.6-10.3); Carbon Dioxide 26 mEq/L (23-29); Chloride 97 mEq/L (98-107); Globulin 3.2 g/dL (2.4-3.5); Glucose 103 mg/dL (70-105); Osmolality,Calculated 270 (280-300); Potassium 4.7 mEq/L (3.5-5.1); Sodium 130 mEq/L (136-145); Troponin I < 0.03 ng/mL (< 0.04); eGFR For African Americans > 60 (> 60); eGFR For Non-African Americans > 60 (> 60)
[2020-09-25 12:35] LABS: Lymphocytes # 7.9 K/mcL (0.6-4.6); Monocytes # 0.5 K/mcL (0.0-1.3); Neutrophils # 5.2 K/mcL (1.6-8.9); Reactive Lymphocytes Present (Not Present); Smudge Cells Present (Not Present)
[2020-09-25 12:36] LABS: Platelet Estimate Normal (Normal)
[2020-09-25] MEDS ORDERED: Acetaminophen 325 MG TABLET PO PRN (15:54)
[2020-09-25] MEDS ORDERED: Ondansetron 4 MG/2 ML VIAL IVP PRN (15:54)
[2020-09-25] MEDS ORDERED: Naloxone 0.4 MG/ML INJ IVP PRN (15:54)
[2020-09-25] MEDS: Ipratropium 1 PUFF INHALER IH SCH ×3 (16:35→23:54)
[2020-09-25] MEDS ORDERED: Remdesivir 200 MG in 0.9 % Sodium Chloride 100 ML IVPB ONE (18:00)
[2020-09-25] MEDS: *HR* HYDROcodone/Acet 5/325 mg TABLET PO PRN (20:02)
[2020-09-26] MEDS: Ipratropium 1 PUFF INHALER IH SCH ×5 (04:07→20:23)
[2020-09-26] MEDS ORDERED: *HR* Enoxaparin 40 MG/0.4 ML SYRINGE SQ SCH (06:00)
[2020-09-26] MEDS: Aspirin Enteric Coated 81 MG Tablet PO SCH (08:44)
[2020-09-26] MEDS: *HR* HYDROcodone/Acet 5/325 mg TABLET PO PRN ×2 (08:59→19:54)
[2020-09-26 09:48] LABS: Hematocrit 45.9 % (37.5-50.1); Hemoglobin 14.7 g/dL (12.9-16.9); Mean Corpuscular Hemoglobin 28.3 pg (28.0-33.3); Mean Corpuscular Volume 88.4 fL (83.0-100.0); Mean Platelet Volume 10.1 fL (9.4-12.4); Nucleated Red Blood Cells 0.3 /100 WBC (0); Platelet Count 208 K/mcL (140-400); Red Blood Count 5.19 M/mcL (4.19-5.50); Red Cell Distribution Width 13.9 % (11.5-14.5); White Blood Count 11.9 K/mcL (4.3-11.1)
[2020-09-26 09:58] LABS: Activated Partial Thrombo Time 27.2 Seconds (26.0-36.0); INR 1.2
[2020-09-26 10:09] LABS: Albumin 3.8 g/dL (3.5-5.7); Albumin/Globulin Ratio 1.2 (1.1-2.2); Bilirubin,Direct 0.2 mg/dL (0.0-0.2); Bilirubin,Indirect 0.4 mg/dL (0.0-1.0); Bilirubin,Total 0.6 mg/dL (0.3-1.0); Globulin 3.3 g/dL (2.4-3.5); Total Protein 7.1 g/dL (6.4-8.9)
[2020-09-26 10:10] LABS: Alanine Aminotransferase 71 Units/L (7-52); Albumin 3.8 g/dL (3.5-5.7); Albumin/Globulin Ratio 1.2 (1.1-2.2); Alkaline Phosphatase 43 Units/L (34-104); Aspartate Amino Transferase 67 Units/L (13-39); BUN/Creatinine Ratio 16 (6-26); Bilirubin,Total 0.6 mg/dL (0.3-1.0); Blood Urea Nitrogen 13 mg/dL (6-20); Calcium 8.7 mg/dL (8.6-10.3); Carbon Dioxide 24 mEq/L (23-29); Chloride 102 mEq/L (98-107); Globulin 3.3 g/dL (2.4-3.5); Glucose 81 mg/dL (70-105); Osmolality,Calculated 279 (280-300); Potassium 4.6 mEq/L (3.5-5.1); Sodium 135 mEq/L (136-145); Total Protein 7.1 g/dL (6.4-8.9); eGFR For African Americans > 60 (> 60); eGFR For Non-African Americans > 60 (> 60)
[2020-09-26 11:29] LABS: Large Platelets Present (Not Present); Lymphocytes # 7.9 K/mcL (0.6-4.6); Monocytes # 0.4 K/mcL (0.0-1.3); Neutrophils # 3.6 K/mcL (1.6-8.9); Platelet Estimate Normal (Normal); Reactive Lymphocytes Present (Not Present)
[2020-09-26] MEDS ORDERED: Remdesivir 100 MG in 0.9 % Sodium Chloride 100 ML IVPB SCH (17:00)
[2020-09-26] MEDS: *HR* Enoxaparin 40 MG/0.4 ML SYRINGE SQ SCH (17:01)
[2020-09-27] MEDS: Ipratropium 1 PUFF INHALER IH SCH ×4 (00:19→11:10)
[2020-09-27 01:40] LABS: Albumin 3.7 g/dL (3.5-5.7); Albumin/Globulin Ratio 1.2 (1.1-2.2); Bilirubin,Direct 0.2 mg/dL (0.0-0.2); Bilirubin,Indirect 0.3 mg/dL (0.0-1.0); Bilirubin,Total 0.5 mg/dL (0.3-1.0); Globulin 3.1 g/dL (2.4-3.5); Total Protein 6.8 g/dL (6.4-8.9)
[2020-09-27] MEDS: *HR* Enoxaparin 40 MG/0.4 ML SYRINGE SQ SCH (05:08)
[2020-09-27 09:29] VITALS: BP 117/79; PULSE 89; TEMP 98.7
[2020-09-27] MEDS: Aspirin Enteric Coated 81 MG Tablet PO SCH (09:29)
[2020-09-27] MEDS: *HR* HYDROcodone/Acet 5/325 mg TABLET PO PRN (09:30)
[2020-09-27 15:19] VITALS: O2SAT 90
== END 2020-09-27 14:53 | disposition home or self-care (01) | DRG 177 ==
LOC: EMEROOARM 09:53 → 2NENU 09:53
PROVIDERS: ADMIT Internal Medicine; ATTEND Internal Medicine